=== PATIENT | female | born 1950 | race Caucasian/White ===

== ENCOUNTER → 2019-11-23 09:22 | Outpatient (BNVA) | payer MEDICARE, SELFPAY | PROVIDERS: Family Provider Family Medicine; PCP Family Medicine; Visit Provider Specialist | DX: M17.11 Unilateral primary osteoarthritis, right knee (principal) | CPT/HCPCS: 73560; 73565 ==

== ENCOUNTER 2019-12-02 08:59 | Outpatient (CLI) | payer MEDICARE, SELFPAY ==
--- NOTE | 2019-12-02 09:15 | MR_ITS ---
WS: [id number] INDICATION: Lump left lower limb TECHNIQUE: MRI of the femur without and with gadolinium enhancement. Axial T2, axial PD, coronal STIR , coronal T1, sagittal STIR, and multiplanar post gadolinium imaging with fat saturation technique. FINDINGS: Correlation to prior radiograph November 23, 2019 Proximal left femur is normal in appearance. Mild degenerative arthritis left hip with joint space na rrowing is partially visualized. Normal bone marrow signal in the femoral diaphysis. No acute fractur es. Palpable markers overlying the mid thigh. Well-circumscribed intramuscular lipoma in the proximal ant erior thigh compartment. This demonstrates loss of signal on the fat saturation images. No abnormal a reas of enhancement. Lipoma measures approximately 3.5 x 9.6 x 19.1 cm AP by transverse by mary al. This is in the area of the palpable markers. This extends from the left hip at the level of the f emoral neck to the mid thigh and involves the rectus femoris and vastus lateralis. No underlying bone marrow edema. No other suspicious lesions. MR/MR femur LT wo/w con [id number] IMPRESSION: 1. Large well-circumscribed intramuscular lipoma in the area of concern left p roximal thigh. 2. Lipoma measures 3.5 x 9.6 x 19.1 cm and extends from the left hip to the mi d thigh. 3. This involves or displaces the rectus femoris and vastus lateralis musculat ure in the anterior compartment. 4. No enhancing components or enhancing soft tissue nodularity.
[2019-12-02 10:57] LABS: Blood Urea Nitrogen 21 mg/dL (8-23); Glomerular Filtration Rate 49.5 mL/min (90-130)
== END 2019-12-02 09:00 | disposition home or self-care (01) ==
LOC: RADWPI 09:04
PROVIDERS: Family Provider Family Medicine; PCP Family Medicine; Visit Provider Specialist
DX: R22.42 Localized swelling, mass and lump, left lower limb (principal)
CPT/HCPCS: 73720; 82565; 84520; A9579

== ENCOUNTER 2020-08-17 13:34 | Outpatient (CLI) | payer MEDICARE, SELFPAY ==
--- NOTE | 2020-08-17 18:24 | ONC CON_ITS ---
Dr. Callahan New Patient Note Patient: Jennifer Gary Unit #: [id number]: 1950 Dicatated By: Roge Callahan M.D.Date of Visit: Aug 17, 2020 Onc MED New Patient/Consult Referring Physician: Dr. Puma Deluca M.D. Chief Complaint: Liposarcoma. History of Present Illness: This is a 70 year-old woman with a well-diffentiated liposarcoma involving the left thigh. She had presented with a large knot in her left thigh. She had brought to the attention of Dr. Brooks on a scheduled follow-up visit with her in October 2019. At that point she had been aware of it for about 6 months. MRI of the left femur with and without contrast on 12/02/2019 showed findings consistent with a well-circumscribed intramuscular lipoma in the proximal anterior thigh compartment. It measured 3.5 x 9.6 x 19.1 cm. It was noted to extend from the left hip at the level of the femoral neck to the mid thigh and it was involving the rectus femoris and vastus lateralis. There is no underlying bone marrow edema. She was referred to the orthopedic department at [facility] for further management. On 04/13/2020 she underwent excision of the left thigh mass by Dr. Puma Pisano for what was presumed to be an intramuscular lipoma. 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 The mitotic count was 0/10 HPF. The tumor measured 15 x 12.9 x 3.9 cm. The margins were noted to be involved by sarcoma. There were no lymph nodes included in the surgical specimen. The tumor was noted to be positive for MDM2 gene amplification by FISH with a ratio of 7.5. She is seen now at her request, mainly because she has been having more pain in her left thigh, starting just above the left knee and radiating up to the hip. She says it hurts all the time. She also complains that her energy is very low, and that seems to have worsened since her surgery. She complains of being weak and fatigued to the point that she gets lightheaded. She is still able to do light work. ECOG score is 1. Her appetite has been okay, though she says she does not eat very much. However, she has been gaining weight. She does not have fever. She sometimes has hot flashes/sweating. Her breathing is rough at times, but that she attributes to sarcoidosis. She does not complain of cough. She has had some chest pain. She complains of having nausea on a daily basis. She also has heartburn despite taking pantoprazole. Bowel function has been okay. She reports having some bladder incontinence. She has arthritis in both knees. She has chronic migraine, for which she has been on Botox. She has no numbness/paresthesia or other focal neurologic symptoms. She does report having bad anxiety attacks. She has obstructive sleep apnea, she has not been able to tolerate CPAP due to claustrophobia. Past Medical History: Her medical history includes chronic anxiety, chronic kidney disease (stage III), chronic migraine, degenerative arthritis, gastroesophageal reflux disease, history of renal cancer, hyperlipidemia, hypertension, hypothyroidism, obstructive sleep apnea, and sarcoidosis. Past Surgical History: She underwent excision of left thigh mass on 04/13/2020. Her other surgical/procedural history includes arthroscopic knee surgery bilaterally, back surgery, cardiac catheterization, carpal tunnel release bilaterally, cataract excision, cholecystectomy, hysterectomy/bilateral salpingo-oophorectomy, mediastinoscopy, multiple hernia repairs, Angel fundoplication, and left partial nephrectomy in 2004. Medications: Metoprolol Succinate ER 1 Tablet (of 100 mg) Tablet SR 24 HR Oral b.i.d., Ondansetron HCl 1 Tablet (of 4 mg) Oral, Pantoprazole Sodium 1 Tablet (of 40 mg) Tablet, enteric coated Oral daily Allergies: Barium Sulfate, Codeine Sulfate, and oxyCODONE HCl. Social History: Ms. Gary is single. She is a non-smoker. She does not drink alcohol. Family History: Father had heart disease and of lung cancer at age 71. Mother with Alzheimer's dementia at age 82. She also had heart problems. She has 2 brothers, 1 of whom is known to be in good health. She had a total of 17 stepbrothers and sisters and she indicates that all of the stepsisters had breast cancer. Review Of Symptoms: Constitutional - Her energy is lower than it was prior to her surgery. She is able to do light housework. Her appetite is OK, but she says she doesn't eat very much. However, she reports that she has been gaining weight. No fever, night sweats, or hot flashes. ECOG score is 1, Eyes - She does not have good vision, but it has not changed recently, ENMT - No hearing loss or tinnitus. She has seasonal allergies. No mouth sores. No sore throat or difficulty swallowing, Hematologic/Lymphatic - She bruises easily, Respiratory - She has shortness of breath. No cough. No pleuritic pain or hemoptysis, Cardiovascular - She has had chest pain. No palpitations, Gastrointestinal - She has daily nausea. No vomiting. She is taking pantoprazole for heartburn. No diarrhea or constipation. No blood in the stool or black stools, Genitourinary (F) - No dysuria or hematuria. No urinary frequency. She has incontinence, Musculoskeletal - She has significant pain in her left leg. It starts in her knee and radiates up into her thigh. She also has chronic right knee pain, Integumentary - No skin complications, Neurologic - She has chronic headaches. She gets Botox injections. She has occasional dizziness. No numbness or tingling. No other focal neurologic symptoms, Psychiatric - She has frequent anxiety. No depression. She does not sleep. Vital Signs: Performed on Aug 17, 2020 14:03: 4, 37.04 (HIGH), 2.22 sq.m, 68.00 in, 98 %, 75 /min, 24 /min, 140/67 mm(hg), 99.0 F (HIGH), and 243.6 lbs (HIGH). Physical Examination: Constitutional - She appears to be in reasonably good general health, Eyes - Sclerae nonicteric. Conjunctivae clear, ENMT - No lesions noted in the oral cavity, Neck - No mass or thyromegaly, Hematologic/Lymphatic - No cervical, clavicular, or axillary adenopathy, Respiratory - Lungs sound clear. She has good air movement bilaterally, Cardiovascular - Heart rhythm is regular. There is no murmur, gallop, or rub noted, Abdomen - Distended. Liver and spleen are not enlarged. There is no abdominal mass or ascites noted and there is no inguinal adenopathy, Back/Spine - No spine or CVA tenderness noted, Extremities - No edema. The left thigh incision appears well-healed. There is no mass or other palpable abnormality in that area. Posterior tibial pulses are palpable bilaterally, Integumentary - No rashes. No suspicious skin lesions noted, Neurologic - No focal neurologic deficits noted. Impression: 1. 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 2. She underwent excision of left thigh mass on 04/13/2020 with pathology showing positive surgical margin. Her other medical illnesses include: 3. Hypertension. 4. Hyperlipidemia. 5. Chronic kidney disease. 6. Hypothyroidism. 7. GERD. 8. Pulmonary sarcoidosis. 9. Obstructive sleep apnea. 10. Degenerative arthritis. 11. Chronic anxiety. 12. History of left partial nephrectomy for renal cell cancer in 2004. Plan: The surgical findings and pathology results were reviewed with the patient. We discussed the clinic complications. She has a well differentiated liposarcoma involving the intramuscular space of the left thigh. It has been completely excised, but with a positive surgical margin. I would expect that in the setting of completely resected, low-grade disease observation would be the appropriate management, but I will contact Dr. Jimenez at [facility] to make sure they would not want to see her there, as she definitely will be at risk for local recurrence and also at some risk for development of metastatic disease. As such, given her worsening left thigh pain and worsening fatigue, I also will want to schedule her for a follow-up MRI of the left thigh and for a chest CT scan. I will obtain recent lab studies done by Dr. Rosario to verify her renal function. Signed By: Roge Callahan M.D. <<Signature on File>>
== END 2020-08-17 13:35 | disposition home or self-care (01) ==
LOC: ONCMED 13:39
PROVIDERS: PCP Family Medicine; Visit Provider Internal Medicine Medical Oncology
DX: C49.22 Malignant neoplasm of connective and soft tissue of left lower limb, including hip (principal); I10 Essential (primary) hypertension; E78.5 Hyperlipidemia, unspecified; N18.9 Chronic kidney disease, unspecified; E03.9 Hypothyroidism, unspecified; K21.9 Gastro-esophageal reflux disease without esophagitis; D86.0 Sarcoidosis of lung; G47.33 Obstructive sleep apnea (adult) (pediatric); M19.90 Unspecified osteoarthritis, unspecified site; F41.9 Anxiety disorder, unspecified; Z90.5 Acquired absence of kidney
CPT/HCPCS: 99204

== ENCOUNTER 2020-09-07 09:40 | Outpatient (CLI) | payer MEDICARE, SELFPAY ==
--- NOTE | 2020-09-07 09:45 | MR_ITS ---
WS: [id number] INDICATION: Liposarcoma TECHNIQUE: MRI of the femur without and with gadolinium enhancement. Axial T2, axial PD, coronal STIR , coronal T1, sagittal STIR, and multiplanar post gadolinium imaging with fat saturation technique. FINDINGS: Comparison to prior MRI December 02, 2019 Previously described extensive left thigh intramuscular lipoma has been resected in the interval. Pre viously described lipoma displaced the rectus femoris and vastus lateralis in the anterior thigh comp artment. Residual T1 fatty lipoma in the high proximal thigh measuring 1.7 x 7.2 x 7.4 cm. No enhanci ng components or soft tissue nodularity. Normal bone marrow signal in the proximal and distal femur. No bone marrow signal abnormalities. Norm al postoperative changes in the mid and distal anterior thigh compartment. No drainable fluid collect ions or abscess. No inguinal lymphadenopathy. No other significant findings. MR/MR femur LT wo/w con [id number] IMPRESSION: 1. Interval postoperative changes resection of the majority of the previously described left intramuscular lipoma/liposarcoma. 2. Residual lipoma in the high proximal thigh measuring 1.7 x 7.2 x 7.4 CM. 3. No abnormal gadolinium enhancement or enhancing nodularity. 4. Normal bone marrow signal in the femoral shaft and proximal femur. 5. No inguinal lymphadenopathy.
== END 2020-09-07 09:41 | disposition home or self-care (01) ==
LOC: RADSHAW 09:43
PROVIDERS: PCP Family Medicine; Visit Provider Internal Medicine Medical Oncology
DX: C49.9 Malignant neoplasm of connective and soft tissue, unspecified (principal); D17.24 Benign lipomatous neoplasm of skin and subcutaneous tissue of left leg; C49.22 Malignant neoplasm of connective and soft tissue of left lower limb, including hip; Z03.89 Encounter for observation for other suspected diseases and conditions ruled out
CPT/HCPCS: 73720; 93971; A9579

== ENCOUNTER 2020-09-07 09:51 | Outpatient (CLI) | payer MEDICARE, SELFPAY ==
--- NOTE | 2020-09-07 11:46 | USCV_ITS ---
JarethJennifer hernández Age: 70 Gender: F : 1950 Exam Date: 09/07/2020 11:58 Ordering Phys: Roge Callahan MD Technologist: Portillo Shore [place] [facility] [place]: rule out DVT PROCEDURES: Venous duplex imaging was performed in only the left lower extremity. The following venous structures were evaluated: common femoral vein, profunda vein, proximal portion of the greater saphenous vein, superficial femoral vein, and the popliteal vein. In addition, the posterior tibial and peroneal trunk were evaluated. Serial compression, augmentation maneuvers, and spectral Doppler flow evaluation were performed. FINDINGS: Normal 2-D Doppler and augmentation and compressibility throughout the lower extremity venous structures. Additional imaging through the proximal calf veins also reveals no thrombus. Limited evaluation of the greater saphenous vein is patent with no thrombus.. CONCLUSIONS No evidence of left lower extremity DVT. Boy Arroela MD (Electronically Signed) Final Date: 07 September 2020 16:42 S
== END 2020-09-07 09:52 | disposition home or self-care (01) ==
LOC: RAD 09:52
PROVIDERS: PCP Family Medicine; Visit Provider Internal Medicine Medical Oncology
DX: C49.22 Malignant neoplasm of connective and soft tissue of left lower limb, including hip (principal)
CPT/HCPCS: 93971

== ENCOUNTER 2020-09-12 08:15 | Outpatient (CLI) | payer MEDICARE, SELFPAY ==
--- NOTE | 2020-09-12 08:26 | CT_ITS ---
WS: [id number] Exam: CT chest w con* [id number] Date/Time of Exam: 09/12/2020 8:27 AM Reason For Exam: LIPOSARCOMA DLP: 922.[address] scans at [facility] use at least one of these dose optimization techniques: automat ed exposure control; mA and/or kV adjustment per patient size (includes targeted exams where dose is matched to clinical indication); or iterative reconstruction. 100 mL of nonionic radiographic contras t administered for this exam. The lungs are fully expanded and clear. Mild plaque atelectasis in the left upper lobe. No suspicious pulmonary mass or nodule. Prominent hiatal hernia. No significant mediastinal or hilar lymphadenopat hy. The thoracic aorta is normal in caliber. The central pulmonary arteries are clear. There are nume nelly calcified mediastinal and perihilar granulomas. No pericardial or pleural effusion. Mild cardiac enlargement. Normal thyroid tissue. No axillary lymphadenopathy. The chest wall is intact. There are no destructive bone lesions. CT sections the upper abdomen demonstrate numerous calcified granulomas in the spleen. CT/CT chest w con* [id number] IMPRESSION: 1. No sign of suspicious pulmonary mass or lymphadenopathy in the chest. 2. Prominent hiatal hernia.
[2020-09-12 08:48] LABS: Blood Urea Nitrogen 17 mg/dL (8-23); Glomerular Filtration Rate 49.4 mL/min (90-130)
[2020-09-12] MEDS: iodixanol 320 mg/mL 100mL Btl IV (08:55)
== END 2020-09-12 08:16 | disposition home or self-care (01) ==
LOC: RADWPI 08:19
PROVIDERS: Nurse Practitioner; PCP Family Medicine; Visit Provider Internal Medicine Medical Oncology
DX: C49.22 Malignant neoplasm of connective and soft tissue of left lower limb, including hip (principal); K44.9 Diaphragmatic hernia without obstruction or gangrene
CPT/HCPCS: 71260; 82565; 84520; Q9967

== ENCOUNTER 2020-10-03 11:42 | Outpatient (CLI) | payer MEDICARE, SELFPAY ==
--- NOTE | 2020-10-03 11:46 | MM_ITS ---
WS: [id number] BILATERAL SCREENING DIGITAL MAMMOGRAM WITH CAD HISTORY: SCREENING COMPARISON: 09/04/2019, 07/18/2018 Bilateral CC and MLO views submitted. Computer aided detection analyzed. Breast composition: There are scattered areas of fibroglandular density. No suspicious masses, microc alcifications or architectural distortion. Asymmetries and benign calcifications are stable. MM/[place] [id number] IMPRESSION: BI-RADS: 2-Benign FOLLOW UP: 1 Year Follow-up
== END 2020-10-03 11:43 | disposition home or self-care (01) ==
LOC: RADSHAW 11:45
PROVIDERS: PCP Family Medicine; Visit Provider Family Medicine
DX: Z12.31 Encounter for screening mammogram for malignant neoplasm of breast (principal)
CPT/HCPCS: 77067

== ENCOUNTER 2021-01-13 08:33 | Outpatient (CLI) | payer MEDICARE, SELFPAY ==
--- NOTE | 2021-01-13 08:40 | USCV_ITS ---
Jennifer Gary Age: 70 Gender: F : 1950 Exam Date: 01/13/2021 08:50 Ordering Phys: Tayo Novoa MD Technologist: Rosario Collins [place]am [place] [facility] [place] [facility] [place] Indication: LLE CALF REDNESS, WARMTH, AND SWELLING HISTORY: Lower extremity swelling. Lower extremity pain. PROCEDURES: Venous duplex imaging was performed in only the left lower extremity. The following venous structures were evaluated: common femoral vein, profunda vein, proximal portion of the greater saphenous vein, superficial femoral vein, and the popliteal vein. In addition, the posterior tibial and peroneal trunk were evaluated. Serial compression, augmentation maneuvers, and spectral Doppler flow evaluation were performed. FINDINGS: No evidence of DVT seen in any vessel visualized at this time. CONCLUSIONS No evidence of left lower extremity DVT. Boy Arreola MD (Electronically Signed) Final Date: 13 January 2021 16:59 S
== END 2021-01-13 08:34 | disposition home or self-care (01) ==
LOC: RAD 08:38
PROVIDERS: PCP Family Medicine; Visit Provider Orthopaedic Surgery Adult Reconstructive Orthopaedic Surgery
DX: R22.42 Localized swelling, mass and lump, left lower limb (principal)
CPT/HCPCS: 93971

== ENCOUNTER 2021-04-06 07:50 | Outpatient (CLI) | payer MEDICARE, SELFPAY ==
--- NOTE | 2021-04-06 08:00 | US_ITS ---
WS: [id number] Limited abdomen ultrasound. HISTORY: LEFT renal cancer. Partial nephrectomy. COMPARISON: CT 12/17/2018 RIGHT kidney is normal size measuring 10.7 x 3.6 x 4.3 cm. No hydronephrosis or mass. No calcificatio ns. LEFT kidney measures 10.7 cm in length. Moderate thinning of the upper pole cortex. No soft tissue ma ss or obstruction. Minimally distended urinary bladder. US/US abdomen limited [id number] IMPRESSION: 1. Mild atrophy and cortical thinning of the LEFT kidney. No recurrent mass or obstruction. 2. Normal RIGHT kidney.
== END 2021-04-06 07:51 | disposition home or self-care (01) ==
LOC: RAD 07:55
PROVIDERS: PCP Family Medicine; Visit Provider Registered Nurse
DX: R10.9 Unspecified abdominal pain (principal); C64.2 Malignant neoplasm of left kidney, except renal pelvis; N26.1 Atrophy of kidney (terminal)
CPT/HCPCS: 76705

== ENCOUNTER 2021-04-21 13:02 | Outpatient (CLI) | payer MEDICARE, SELFPAY ==
--- NOTE | 2021-04-21 13:26 | CT_ITS ---
WS: [id number] CT ABDOMEN PELVIS TECHNIQUE: Contrast-enhanced CT of the abdomen and pelvis with coronal and sagittal reformatted image s. CLINICAL INFORMATION: LEFT FLANK PAIN, HX OF RENAL CARCINOMA, SARCOIDOSIS OF LUNG COMPARISON: Ultrasound April 06, [address] DLP: All CT scans at [facility] use at least one of these dose optimization techniques: automat ed exposure control; mA and/or kV adjustment per patient size (includes targeted exams where dose is matched to clinical indication); or iterative reconstruction. FINDINGS: Prior hysterectomy. Lung bases are well aerated. Mild diffuse fatty infiltration liver. Cholecystecto my clips. Normal portal vein and splenic vein. Mild fatty atrophy of the pancreas. Calcified splenic granulomas. Small moderate esophageal hiatal hernia. Calcified subcarinal lymph nodes. Adrenal glands are normal. Right renal cortical atrophy. No hydronephrosis in either kidney. Small low-attenuation lesion mid left kidney measuring 6 mm too small to definitively characterize but likely renal cyst. N o obstructing renal or ureteral calculi. Normal caliber abdominal aorta. Mild aortic calcification. No evidence of high-grade small or large b owel obstruction. Ventral abdominal wall diastases. Shallow ventral abdominal wall hernia unchanged f rom previous. No evidence of strangulation or obstruction. Tiny fat-containing umbilical hernia. No free fluid in the pelvis. Pelvic phleboliths. Slight anterol isthesis L4 on L5. No other significant findings. CT/CT abdomen pelvis w con* [id number] IMPRESSION: 1. No obstructing renal or ureteral calculi. No hydronephrosis in either kidne y. 2. Small low-attenuation lesion left kidney measuring 6 mm too small to defini tively characterize but likely renal cyst. 3. Mild diffuse fatty infiltration of the liver. Prior cholecystectomy. 4. Small to moderate esophageal hiatal hernia. 5. Stable ventral abdominal wall hernia/rectus diastases. No strangulation or obstructed bowel. 6. Normal caliber abdominal aorta. 7. No adenopathy in the abdomen or pelvis. 8. No other significant findings.
[2021-04-21 14:35] LABS: Blood Urea Nitrogen 16 mg/dL (8-23)
[2021-04-21 14:36] LABS: Glomerular Filtration Rate 62.3 mL/min (90-130)
[2021-04-21] MEDS: iohexol 300 mg/mL 100 mL Btl IV (14:42)
== END 2021-04-21 13:03 | disposition home or self-care (01) ==
LOC: RADWPI 13:05
PROVIDERS: PCP Family Medicine; Visit Provider Family Medicine
DX: R10.9 Unspecified abdominal pain (principal); Z85.528 Personal history of other malignant neoplasm of kidney; C49.22 Malignant neoplasm of connective and soft tissue of left lower limb, including hip; D86.0 Sarcoidosis of lung; N18.30 Chronic kidney disease, stage 3 unspecified; K43.9 Ventral hernia without obstruction or gangrene; K44.9 Diaphragmatic hernia without obstruction or gangrene; K76.0 Fatty (change of) liver, not elsewhere classified; N28.9 Disorder of kidney and ureter, unspecified
CPT/HCPCS: 74177; 82565; 84520; Q9967

== ENCOUNTER → 2021-07-25 12:10 | Outpatient (BNVA) | payer MEDICARE, SELFPAY | PROVIDERS: PCP Family Medicine; Referring Provider Registered Nurse; Visit Provider Specialist | DX: M79.642 Pain in left hand (principal); R20.0 Anesthesia of skin; R20.2 Paresthesia of skin; M79.643 Pain in unspecified hand; M79.641 Pain in right hand | CPT/HCPCS: 73130; 80053; 85651; 86140; 86200; 86431 ==

== ENCOUNTER 2021-07-25 12:54 | Outpatient (CLI) | payer MEDICARE, SELFPAY ==
[2021-07-25 14:28] LABS: Alanine Aminotransferase 15 U/L (0-33); Albumin Level 3.8 g/dL (3.5-5.2); Alkaline Phosphatase 69 IU/L (35-105); Anion Gap 15.2 (5-19); Aspartate Amino Transferase 15 U/L (0-32); Blood Urea Nitrogen 21 mg/dL (8-23); Calcium 9.1 mg/dL (8.5-10.5); Carbon Dioxide 21 mmol/L (22-29); Chloride 105 mmol/L (98-107); Globulin 2.7 g/dL (1.3-4.6); Glomerular Filtration Rate 62.1 mL/min (90-130); Glucose 98 mg/dL (65-115); Osmolality Calculated 287 mOsm/kg (285-295); Potassium 4.2 mmol/L (3.5-5.1); Sodium 137 mmol/L (136-145); Total Bilirubin 0.4 mg/dL (0.15-1.2); Total Protein 6.5 g/dL (6.6-8.7)
[2021-07-26 13:56] LABS: Erythrocyte Sedimentation Rate 6 mm/hr (0-15)
[2021-07-26 14:07] LABS: Cyclic Citrullinated Peptide <16 UNITS
== END 2021-07-25 12:55 | disposition home or self-care (01) ==
PROVIDERS: PCP Family Medicine; Visit Provider Specialist
DX: M79.641 Pain in right hand (principal); R20.0 Anesthesia of skin; R20.2 Paresthesia of skin; M79.642 Pain in left hand
CPT/HCPCS: 80053; 85651; 86140; 86200; 86431

== ENCOUNTER → 2021-08-15 15:26 | Outpatient (BNVA) | payer MEDICARE, SELFPAY | PROVIDERS: PCP Family Medicine; Referring Provider Specialist; Visit Provider Specialist | DX: R20.0 Anesthesia of skin (principal); R20.2 Paresthesia of skin | CPT/HCPCS: 95910 ==

== ENCOUNTER 2022-04-12 06:00 | Outpatient (RCR) | payer MEDICARE, SELFPAY | END 2022-04-26 23:59 | disposition home or self-care (01) | LOC: MPT 06:00 | PROVIDERS: PCP Family Medicine; Referring Provider Orthopaedic Surgery Adult Reconstructive Orthopaedic Surgery; Visit Provider Orthopaedic Surgery Adult Reconstructive Orthopaedic Surgery | DX: M25.552 Pain in left hip (principal) | CPT/HCPCS: 97110; 97162 ==

== ENCOUNTER 2022-04-27 06:00 | Outpatient (RCR) | payer MEDICARE, SELFPAY | END 2022-05-27 23:59 | disposition home or self-care (01) | LOC: MPT 06:00 | PROVIDERS: PCP Family Medicine; Referring Provider Orthopaedic Surgery Adult Reconstructive Orthopaedic Surgery; Visit Provider Orthopaedic Surgery Adult Reconstructive Orthopaedic Surgery | DX: M25.552 Pain in left hip (principal) | CPT/HCPCS: 97110; 97140 ==

== ENCOUNTER → 2022-05-14 13:33 | Outpatient (BNVA) | payer MEDICARE, MEDICAID, SELFPAY | PROVIDERS: PCP Family Medicine; Referring Provider Family Medicine; Visit Provider Internal Medicine | DX: E04.2 Nontoxic multinodular goiter (principal); R93.89 Abnormal findings on diagnostic imaging of other specified body structures; R13.10 Dysphagia, unspecified | CPT/HCPCS: 36415; 84439; 84443; 99204 ==

== ENCOUNTER 2022-05-23 14:11 | Outpatient (CLI) | payer MEDICARE, MEDICAID, SELFPAY ==
--- NOTE | 2022-05-23 14:38 | MM_ITS ---
WS: [id number] Exam: [place] [id number] Date/Time of Exam: 05/23/2022 3:00 PM Reason For Exam: SCREENING VIEWS: MLO and CC views both breasts. 3D digital tomosynthesis is also included in this exam. Comparison made with prior exam of 01/31/2015, 04/20/2016, 05/02/2017, 07/18/2018, 09/04/2019, 10/03/2020.. Findings: There was no sign of mass, architectural distortion or suspicious calcification in either breast. Sta ble appearing nodular densities in both breasts.Scattered fibroglandular densities MM/[place] [id number] Impression: BI-RADS: 2-Benign FOLLOW-UP: 1 Year Follow-up This mammogram was also analyzed by the Computer Aided Detection System R2 Imag e Rejoiner.
== END 2022-05-23 14:12 | disposition home or self-care (01) ==
PROVIDERS: PCP Family Medicine; Visit Provider Family Medicine
DX: Z12.31 Encounter for screening mammogram for malignant neoplasm of breast (principal)
CPT/HCPCS: 77063; 77067

== ENCOUNTER 2022-06-14 07:55 | Outpatient (CLI) | payer MEDICARE, MEDICAID, SELFPAY ==
--- NOTE | 2022-06-14 08:45 | US_ITS ---
WS: [id number] ULTRASOUND THYROID FNA CLINICAL INFORMATION: Nodules TECHNIQUE: Ultrasound-guided FNA FINDINGS: Outside imaging was reviewed. 2 largest nodules were selected considered nodules 1 and 2 i n the RIGHT upper thyroid for the purposes of this examination. The procedure including risks, benefits, and complications were discussed with the patient who agreed to proceed. Timeout was performed. Using sterile technique patient was prepped and draped in usual s terile fashion. After 1% lidocaine, using ultrasound guidance, a 25-gauge needle was advanced into th e RIGHT superior thyroid nodule. 3 passes were made with active aspiration. Pathology was present for slide preparation. Next, the additional underlying RIGHT superior thyroid nodule was sampled with 3 passes and active aspiration. No immediate complications. Patient remained in the ultrasound suite 20 minutes postprocedure with intermittent ultrasound to ens ure no hematoma. No hematoma 20 minutes postprocedure. US/US biopsy/FNA thyroid [id number] IMPRESSION: Uncomplicated ultrasound-guided thyroid FNA of the 2 largest thyroid nodules. T hese are labeled nodules #1 and #2 RIGHT upper thyroid.
[2022-06-14 10:36] LABS: Testosterone Total 2.5 ng/dL (2.9-40.8)
[2022-06-14 11:22] LABS: Follicle Stimulating Hormone 59.4 mIU/mL
== END 2022-06-14 07:56 | disposition home or self-care (01) ==
PROVIDERS: PCP Family Medicine; Visit Provider Internal Medicine
DX: R93.89 Abnormal findings on diagnostic imaging of other specified body structures (principal); E04.2 Nontoxic multinodular goiter; R61 Generalized hyperhidrosis; R53.83 Other fatigue
CPT/HCPCS: 10005; 10006; 36415; 82670; 83001; 84144; 84403; 88108

== ENCOUNTER 2022-07-12 14:07 | Outpatient (CLI) | payer MEDICARE, SELFPAY ==
[2022-07-12 15:53] LABS: Testosterone Total < 2.5 ng/dL (2.9-40.8)
== END 2022-07-12 14:08 | disposition home or self-care (01) ==
PROVIDERS: PCP Family Medicine; Visit Provider Internal Medicine
DX: R79.89 Other specified abnormal findings of blood chemistry (principal)
CPT/HCPCS: 84403

== ENCOUNTER → 2022-07-17 12:46 | Outpatient (BNVA) | payer MEDICARE, MEDICAID, SELFPAY | PROVIDERS: PCP Family Medicine; Visit Provider Internal Medicine | DX: R93.89 Abnormal findings on diagnostic imaging of other specified body structures (principal); E04.2 Nontoxic multinodular goiter; R13.10 Dysphagia, unspecified | CPT/HCPCS: 99214 ==

== ENCOUNTER → 2022-08-08 12:37 | Outpatient (BNVA) | payer MEDICARE, MEDICAID, SELFPAY | PROVIDERS: PCP Family Medicine; Visit Provider Surgery | DX: R19.4 Change in bowel habit (principal) | CPT/HCPCS: 99203 ==

== ENCOUNTER 2022-08-10 10:20 | Day surgery (SDC) | payer MEDICARE, MEDICAID, SELFPAY ==
[2022-08-09 13:12] VITALS: BMI 34.9
[2022-08-10 10:49] VITALS: BP 171/96; PULSE 74; RESP 18; TEMP 36.2; O2SAT 99
[2022-08-10] MEDS: sodium chloride 0.9% 1,000 ML 30 ML IV (11:00)
--- NOTE | 2022-08-10 11:09 | ANES.PREANE2 ---
Pre-Anesthetic Assessment Height/Weight: Height 1.73 m Weight 104.326 kg Temp Pulse Resp BP Pulse Ox O2 Del Method 97.2 F L 74 18 171/96 99 08/10/22 10:49 08/10/22 10:49 08/10/22 10:49 08/10/22 10:49 08/10/22 10:49 08/10/22 10:49 Operation Date: 08/10/22 11:45 Proposed Procedures p EGD [id number],R19.4(Not Applicable) - Juanpablo Souza MD Familial anesthetic complications: None Was Beta Donald taken within 24 hours: N/A Was Clonidine taken within 24 hours: N/A Last intake: Intake Last Liquid Date 08/09/22 Last Liquid Time 18:00 Last Solid Date 08/09/22 Last Solid Time 17:30 Social No alcohol and No tobacco Exam alert, oriented x 3, clear to auscultation bilaterally and regular rate & rhythm Airway Mallampati: Class III Dentition: partials (broken partial) Pulmonary allergies GI Gastroesophageal Reflux Disease Metabolic Morbid Obesity Anesthetic Plan ASA status: 2 Anesthesia: MAC Risk of > 500 ml blood loss (7ml/kg in children): No Medications/Allergies Home Medications Medication Instructions Recorded Confirmed Last Taken Type albuterol sulfate 90 mcg/actuation 1 inh inhalation QID PRN Shortness 07/25/21 08/10/22 08/09/22 History breath activated powder inhaler Of Breath diphenhydramine HCl 25 mg capsule 25 mg PO Q6H PRN Allergy Symptoms 07/25/21 08/10/22 08/09/22 History (Benadryl) montelukast 10 mg tablet 10 mg PO DAILY 05/14/22 08/10/22 08/09/22 History tizanidine 4 mg capsule 4 mg PO TID PRN Spasms 05/14/22 08/10/22 08/09/22 History ergocalciferol (vitamin D2) 50 mcg 50 mcg PO .WKLY 08/08/22 08/10/22 08/09/22 History (2,000 unit) capsule ondansetron HCl 4 mg tablet 4 mg PO Q6H PRN Nausea And Vomiting 08/08/22 08/10/22 08/09/22 History pantoprazole 40 mg tablet,delayed 40 mg PO DAILY 08/08/22 08/10/2222 History release Allergies Allergy/AdvReac Type Severity Reaction Status Date / Time hydroxyzine Allergy Mild RASH Verified 08/08/22 13:12 barium sulfate Allergy unknown Verified 08/08/22 13:12 codeine Allergy unknown Verified 08/08/22 13:12 oxycodone Allergy unknown Verified 08/08/22 13:12 Current Medications Generic Name Dose Route Start Last Admin Trade Name Freq PRN Reason Stop Dose Admin Sodium Chloride 1,000 mls @ 30 mls/hr 08/10/22 10:45 08/10/22 11:00 Sodium Chloride 0.9% IV 08/11/22 10:44 30 mls/hr .Q24H GABRIELLA Administration PFSH Anesthesia Medical History Osteoarthritis of knees, bilateral Surgical History History of arthroscopy of both knees Family History Grandmother Diabetes Congestive heart failure Father Cancer Heart disease Congestive heart failure Sister Cancer Mother Heart disease Dementia Grandfather Congestive heart failure Social History Smoking and tobacco status: never smoked Alcohol intake: never Female Reproductive History Spontaneous abortions: No Data Anesthesia Cardiac Studies: No Data to Display
--- NOTE | 2022-08-10 12:29 | W.PM.OPSUD ---
Surgery/Procedure H&P Update DATE OF PROCEDURE: August 10, 2022 DATE H&P PERFORMED: 08/08/22 H&P UPDATE INFORMATION: I have reviewed H&P completed within last 30 days, I have examined patient prior to procedure and No changes to prior documentation PRIMARY INDICATION FOR PROCEDURE: The same PLANNED PROCEDURE: Operation Date: 08/10/22 11:45 Proposed Procedures p EGD [id number],R19.4(Not Applicable) - Juanpablo Souza MD
[2022-08-10 14:06] VITALS: BP 159/89; PULSE 65; RESP 18; TEMP 36.5; O2SAT 95
--- NOTE | 2022-08-10 14:09 | ANE.PACU2 ---
Inpatient post-anesthesia follow up: Airway intact: Yes Vital signs: Temperature 97.2 F Pulse Rate 74 Respiratory Rate 18 Blood Pressure 171/96 Pulse Oximetry 99 Oxygen Delivery Me thod Room Air Oxygen Flow Rate Fraction of Inspir ed Oxygen Hydration adequate: Yes Nausea and vomiting: No Pain level: 1 Mental status: Baseline
[2022-08-10 14:11] VITALS: BP 170/86; PULSE 66; RESP 18; O2SAT 98
[2022-08-10 14:20] VITALS: BP 154/80; PULSE 61; RESP 18; O2SAT 99
== END 2022-08-10 14:32 | disposition home or self-care (01) ==
PROVIDERS: PCP Family Medicine; Visit Provider Surgery
PROC: 0DJ08ZZ Inspection of Upper Intestinal Tract, Via Natural or Artificial Opening Endoscopic (ICD-10-PCS; CPT 43235; principal; 2022-08-10 11:45)
DX: R19.4 Change in bowel habit (principal); K44.9 Diaphragmatic hernia without obstruction or gangrene; K29.70 Gastritis, unspecified, without bleeding; K29.80 Duodenitis without bleeding; K21.9 Gastro-esophageal reflux disease without esophagitis; E66.01 Morbid (severe) obesity due to excess calories; Z68.35 Body mass index [BMI] 35.0-35.9, adult
CPT/HCPCS: 43239; 88305; J2704; J7030

== ENCOUNTER 2022-08-27 09:48 | Outpatient (CLI) | payer MEDICARE, MEDICAID, SELFPAY ==
--- NOTE | 2022-08-27 10:05 | FL_ITS ---
WS: [id number] BARIUM ENEMA SINGLE CONTRAST. HISTORY: ALTERED BOWEL HABITS COMPARISON: None available. FLUOROSCOPY TIME: 2min [id number] # of spot films: 29 Normal bowel gas pattern on the supervisor print line radiograph. Splenic granulomata. Prior cholecystectomy. Barium is instilled via gravity through a rectal tube. Tortuous overlapping loops of sigmoid colon. No persi stent filling defects. No strictures or mass identified throughout the colon. The appendix has been r emoved. There are a few scattered diverticula in the distal colon. Overlapping loops of colon in the hepatic and splenic flexures.
--- NOTE | 2022-08-27 10:15 | FL_ITS ---
WS: [id number] BARIUM ENEMA SINGLE CONTRAST. HISTORY: ALTERED BOWEL HABITS COMPARISON: None available. FLUOROSCOPY TIME: 2min [id number] # of spot films: 29 Normal bowel gas pattern on the talent scout radiograph. Splenic granulomata. Prior cholecystectomy. Barium is instilled via gravity through a rectal tube. Tortuous overlapping loops of sigmoid colon. No persi stent filling defects. No strictures or mass identified throughout the colon. The appendix has been r emoved. There are a few scattered diverticula in the distal colon. Overlapping loops of colon in the hepatic and splenic flexures. FL/FL barium enema [id number] IMPRESSION: 1. Tortuous overlapping loops of colon. 2. No strictures or mass is identified. 3. A few scattered diverticula in the distal colon. 4. Prior appendectomy.
== END 2022-08-27 09:49 | disposition home or self-care (01) ==
LOC: RAD 09:49
PROVIDERS: PCP Family Medicine; Visit Provider Surgery
DX: R19.4 Change in bowel habit (principal); K57.30 Diverticulosis of large intestine without perforation or abscess without bleeding
CPT/HCPCS: 74270; 74280

== ENCOUNTER → 2022-08-29 09:57 | Outpatient (BNVA) | payer MEDICARE, MEDICAID, SELFPAY | PROVIDERS: PCP Family Medicine; Visit Provider Surgery | DX: K29.70 Gastritis, unspecified, without bleeding (principal); R19.4 Change in bowel habit; M62.08 Separation of muscle (nontraumatic), other site | CPT/HCPCS: 99213 ==

== ENCOUNTER 2022-09-26 13:55 | Outpatient (CLI) | payer MEDICARE, MEDICAID, SELFPAY ==
--- NOTE | 2022-09-26 14:01 | XR_ITS ---
WS: [id number] SCREENING DEXA SCAN Zixi CLINICAL INFORMATION: AGE RELATED OSTEOPOROSIS W/O CURRENT FX COMPARISON: None. FINDINGS: The L1-L4 bone mineral density measures 1.09. This corresponds to a T score score of -0.9 and Z score of -0.4. Left femoral neck bone mineral density measures 0.900 g/cm2. This corresponds to a T score of -0.9 an d Z score of -0.2. Right femoral neck bone mineral density measures 0.814 g/cm2. This corresponds to a T score -1.5of an d Z score of -0.9. Mean femoral neck bone mineral density measures 0.857 g/cm2. This corresponds to a T score of -1.2 an d Z score of -0.6. XR/XR DEXA axial skeleton* [id number] IMPRESSION: Normal bone mineralization lumbar spine at the upper end of the range approachi ng osteopenia. Osteopenia femoral necks.. Patient's FRAX calculated 10 year probability for major osteoporotic fracture i s 11.0 % and osteoporotic hip fracture is 2.1%.
== END 2022-09-26 13:56 | disposition home or self-care (01) ==
LOC: RAD 13:56
PROVIDERS: PCP Family Medicine; Visit Provider Family Medicine
DX: M81.0 Age-related osteoporosis without current pathological fracture (principal); M85.88 Other specified disorders of bone density and structure, other site
CPT/HCPCS: 77080

== ENCOUNTER 2022-10-18 06:38 | Outpatient (CLI) | payer MEDICARE, MEDICAID, SELFPAY ==
[2022-10-18 06:57] VITALS: BMI 36.0
--- NOTE | 2022-10-18 07:03 | ECG_ITS ---
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 Interpretive Statements NAME OF STUDY: LEXISCAN SESTAMIBI STRESS TEST INDICATION: Syncope, exertional SOB PROCEDURE: At the baseline, the blood pressure was 149/86 mm Hg with a heart rate of 66 bpm. The electrocardiogram showed sinus rhythm, normal axis.Normal ST and T's. ??? The Lexiscan was infused over a period of 20 seconds. A total of 0.4 milligrams of Lexiscan was infused. The stress phase was continued for a total of 5 minutes. Heart rate at the end of the stress phase was 85 bpm with a blood pressure of 139/81 mm Hg. The EKG at the peak infusion revealed sinus rhythm with no significant ST-T wave changes. ??? Sestamibi was injected 20 seconds after the Lexiscan infusion. ??? Blood pressure at the end of the recovery phase was 127/79 mm Hg with a heart rate of 82 beats per minute. ??? CONCLUSION: 1. No significant EKG changes with the LexiScan infusion. 2. No LexiScan induced chest pain or cardiac arrhythmia. 3. Normal blood pressure and heart rate response. 4. Sestamibi/sestamibi perfusion scan pending; see separate report. Electronically Signed On 10-22-2022 6:19:49 GIS PROGRAMMER by Donna Anderson M.D. [email or web address]
--- NOTE | 2022-10-18 07:03 | NMCV_ITS ---
NM jabari perf SPECT r/s* [id number] Jennifer Gary Age: 72 Gender: F : 1950 Exam Date: 10/18/2022 07:53 Ordering Phys: Christina Rosario DO Technologist: CONNIE Bradshaw Exam Location: [facility] Indications: SYNCOPE AND COLLAPSE STRESS TEST Please see separate stress test report in [facility] for full findings IMAGE PROTOCOL Rest/Stress 1 Lexiscan Day Radiopharmaceutical Dose (mCi) Administration Site Administered by Rest: Tc-99m 11.0 IV CONNIE Worrell Sestamibi Stress:Tc-99m 32.8 IV CONNIE Worrell Sestamibi Rest: 18-Oct-2022 60 Discovery 630 Stress: 18-Oct-2022 30 Discovery 630 0.4mg Lexiscan. Images obtained in supine and prone position. SPECT RESULTS Technical Quality: Excellent Raw Data Analysis: Normal Image Corrections: No attenuation or motion correction applied Summed Stress Score: 1 Summed Rest Score: 1 Summed Difference Score: 1 PERFUSION FINDINGS Very small sized perfusion abnormality of mild severity of apical inferior and apical lateral uribe on rest images with improved tracer uptake in stress images. This is suggestive of attenuation artifact. FUNCTIONAL RESULTS (calculated via Gated SPECT) Stress Image LV EF (%): 78 Stress EDV (mL):81 TID: 0.73 Stress ESV (mL):18 FUNCTIONAL FINDINGS: The left ventricle is normal in size. Transient Ischemia Dilatation of 0.73. The left ventricular ejection fraction is normal with a value of 78%. There is hyperdynamic left ventricular wall thickening. Normal end diastolic and end systolic volumes. IMPRESSIONS 1. Myocardial perfusion imaging is normal. Attenuation artifact in apical wall. 2. Overall left ventricular systolic function is normal without regional wall motion abnormalities, LVEF=78%. 3. EKG portion of the study will be reported separately. 4. Scan indicates low risk for cardiac events. Donna Anderson MD (Electronically Signed) Final Date: 19 October 2022 15:50 S
[2022-10-18] MEDS: regadenoson 0.4 Mg/5 ml Syringe IVP (08:42)
[2022-10-18 09:02] VITALS: BP 127/79; PULSE 82
== END 2022-10-18 06:39 | disposition home or self-care (01) ==
LOC: CDL 06:39
PROVIDERS: PCP Family Medicine; Visit Provider Family Medicine
DX: R55 Syncope and collapse (principal); R06.02 Shortness of breath
CPT/HCPCS: 36415; 78452; 93017; 96374; A9500; J2785

== ENCOUNTER 2022-10-21 17:04 | Emergency (ER) | payer MEDICARE, MEDICAID, SELFPAY ==
--- NOTE | 2022-10-21 17:06 | W.ED.FALL ---
HPI - Fall General: Chief Complaint: Extremity Injury, Lower Stated Complaint: RIGHT KNEE AND HIP PAIN S/P FALL Time Seen by Provider: 10/21/22 17:06 History of Present Illness: Ms. Gary is a 72-year-old lady presenting to the emergency department due to right lower extremity injury. She reports being in her baseline health and slipped on ice earlier while outside. She had her leg fall under her and immediately felt pain and a crack. She denies numbness or tingling. Denies prior injury. Does have knee pain, no loss of consciousness or head strike no other pain identified. No other specific changes in health, exacerbating, or alleviating factors identified. Onset (ago): hour(s) Fall from: standing Loss of consciousness: None Prolonged down time: no Symptoms prior to fall: none Context: tripped/slipped Severity: moderate Quality: aching Review of Systems General: Reports: 10 or more systems reviewed and unremarkable except in HPI and below PFSH ED PFSH: Medical History (Updated 10/29/22 @ 00:00 by CHARLEE Amos) Lateral malleolar fracture Osteoarthritis of knees, bilateral Surgical History History of arthroscopy of both knees Family History Grandmother Diabetes Congestive heart failure Father Cancer Heart disease Congestive heart failure Sister Cancer Mother Heart disease Dementia Grandfather Congestive heart failure Social History Smoking and tobacco status: never smoked Alcohol intake: never Female Reproductive History: Spontaneous abortions: No Physical Exam Const: COMMON NORMALS: alert GENERAL APPEARANCE: cooperative and well developed HENMT: COMMON NORMALS: normocephalic and atraumatic HEAD & SCALP: normocephalic and atraumatic THROAT: posterior oropharynx normal OTHER: No schwartz signs or raccoon eyes. No hemotympanum. No otorrhea or rhinorrhea. Jaw alignment normal. Dentition baseline. No obvious bony step-offs. No septal hematoma. No evidence of ocular entrapment. Eye: COMMON NORMALS: conjunctivae normal CONJUNCTIVA: Yes conjunctivae normal SCLERA: sclerae normal Neck/C-Spine: COMMON NORMALS: supple GENERAL: Yes trachea midline Resp: COMMON NORMALS: normal respiratory effort and clear to auscultation bilaterally EFFORT & INSPECTION: Yes able to speak in complete sentences AUSCULTATION: clear to auscultation bilaterally Cardio: COMMON NORMALS: regular rate and regular rhythm RATE: regular rate RHYTHM: regular rhythm GI: COMMON NORMALS: Soft to palpation PALPATION: Yes Soft to palpation and No Tenderness to palpation present (GI) Back/Pelvis: COMMON NORMALS: no thoracic nor lumbar tenderness Extremity: NARRATIVE EXTREMITY EXAM: Right ankle ecchymosis and tenderness palpation. Distal CMS intact. GENERAL: Yes normal exam except as noted and No edema Neuro: COMMON NORMALS: moves all extremities SENSORIUM/ORIENTATION: Yes alert and No Orientation impaired Psych: COMMON NORMALS: mental status grossly normal and Normal thought process present THOUGHT PROCESS: Normal thought process present Course Vital Signs: Vital signs: Vital Signs Temperature 98.1 F 10/21/22 17:33 Pulse Rate 75 10/21/22 19:49 Respiratory Rate 16 10/21/22 19:49 Blood Pressure 149/85 10/21/22 19:49 Pulse Oximetry 98 10/21/22 19:49 Oxygen Delivery Me thod 10/21/22 19:03 MDM - Fall Medical Decision Making 72-year-old lady presented due to fall with isolated leg injury in the context of slipping on ice. The details end performed. X-rays performed based on physical exam and incidental findings were discussed, only acute finding is small avulsion fracture. Patient placed in walking boot. Symptoms improved with treatment. The results of ED evaluation were discussed with the patient including prescriptions and/or symptomatic cares (if applicable) including appropriate and responsible use, followup plan, and return precautions. The patient verbalized understanding and felt safe for discharge. Medical Records I reviewed the patient's medical records. Lab Data I reviewed the patient's lab results. Radiology Impressions Ankle X-Ray 10/21/22 17:29 IMPRESSION: There is a 1.6 mm osseous sliver in the soft tissues distal to the lateral malleolus consistent with an avulsion fracture. Adjacent soft tissue edema and/or hematoma is present. Knee X-Ray 10/21/22 17:29 IMPRESSION: 1. There are tricompartmental osteoarthritic changes as described above. 2. There is evidence for chronic injury of the medial collateral ligament. Pelvis X-Ray 10/21/22 17:29 IMPRESSION: No evidence for acute fracture. Tibia/Fibula X-Ray 10/21/22 17:29 IMPRESSION: A tiny osseous sliver in the soft tissues distal to the lateral malleolus/distal fibula is consistent with an avulsion fracture. There is adjacent soft tissue hematoma and edema. Discharge Plan Discharge Patient Disposition: Home Clinical Impression: Ankle fracture, lateral malleolus, closed Condition: Stable Prescriptions: No Action albuterol sulfate 90 mcg/actuation aerosol powdr breath activated 1 inh inhalation QID PRN (Reason: Shortness Of Breath) diphenhydramine HCl [Benadryl] 25 mg capsule 25 mg PO Q6H PRN (Reason: Allergy Symptoms) (DME) Walker See Rx Instructions .Route .MEDSUPPLY Qty: 1 0RF Rx Instructions: As directed by HOME tizanidine 4 mg capsule 4 mg PO TID PRN (Reason: Spasms) montelukast 10 mg tablet 10 mg PO DAILY ondansetron HCl 4 mg tablet 4 mg PO Q6H PRN (Reason: Nausea And Vomiting) pantoprazole 40 mg tablet,delayed release (DR/EC) 40 mg PO DAILY ergocalciferol (vitamin D2) 50 mcg (2,000 unit) capsule 50 mcg PO .WKLY Discharge Orders: Discharge ED (Routine); Ordered 10/21/22 Ordered By: William Rayo Other Ambulatory Orders: DME: Miscellaneous (Order) Location: None Selected Ordered By: William Rayo Referrals: Christina Rosario DO [Primary Care Provider] - Discharge Diet: Usual diet Discharge Activity: Limit activity as instructed Patient Instructions: Ankle Fracture (ED), Pain Management Activity Restrictions/Additional Instructions: Thank you for visiting the emergency department. You were seen and evaluated for fall with ankle injury. You are found to have an avulsion fracture of the lateral malleolus. I will arrange for follow-up with either orthopedics or podiatry. Please wear your walking boot and limit weightbearing until follow-up and further instructions. You may use mnld-gnv-gdqdzmo medications such as acetaminophen and ibuprofen for pain however please do not exceed the daily recommended dosage as listed on the packaging and please keep in mind that many namebrand medications contain the same active ingredients. Please avoid these medications if previously instructed to do so by another physician due to other underlying medical condition. Return to the emergency department for uncontrolled symptoms, any new changes in ability to move your foot or toes, loss of sensation, or anything else that you are concerned about a feel needs emergency department evaluation. Coding Level of Care Code ED Digital Media Sales Consultant for Brennen Medina
[2022-10-21 17:24] VITALS: BP 182/112; PULSE 81; RESP 18; O2SAT 97; BMI 36.0
--- NOTE | 2022-10-21 17:29 | XRR_ITS ---
PROCEDURE INFORMATION: Exam: XR Right Ankle Exam date and time: 10/21/2022 5:47 PM Age: 72 years old Clinical indication: Pain; Ankle; Right; Additional info: Fall, pain TECHNIQUE: Imaging protocol: Radiologic exam of the Right ankle. Views: 3 or more views. COMPARISON: CR XR knees AP WB w RT lmt ORTH 11/23/2019 9:26 AM FINDINGS: Bones/joints: Enthesophytes are present off the os calcis at the Achilles insertion and plantar fascia origin. There is a 1.6 mm osseous sliver in the soft tissues distal to the lateral malleolus consistent with an avulsion fracture. Adjacent soft tissue edema and/or hematoma is present. Soft tissues: There is edema in the soft tissues. XR/XR ankle RT min 3V* [id number] IMPRESSION: There is a 1.6 mm osseous sliver in the soft tissues distal to the lateral malleolus consistent with an avulsion fracture. Adjacent soft tissue edema and/or hematoma is present.
--- NOTE | 2022-10-21 17:29 | XRR_ITS ---
PROCEDURE INFORMATION: Exam: XR Pelvis Exam date and time: 10/21/2022 5:43 PM Age: 72 years old Clinical indication: Pelvic pain; Additional info: Fall, rle injury TECHNIQUE: Imaging protocol: Radiologic exam of the pelvis. Views: 1 or 2 view. COMPARISON: CT abdomen pelvis w con* [id number] 04/21/2021 2:39 PM FINDINGS: Bones/joints: Hglg-mm-kcgomdun narrowing of the hip joint spaces. Soft tissues: Unremarkable. Other findings: Surgical coils overlie the pelvis. XR/XR pelvis 1-2V* [id number] IMPRESSION: No evidence for acute fracture.
--- NOTE | 2022-10-21 17:29 | XRR_ITS ---
PROCEDURE INFORMATION: Exam: XR Right Tibia and Fibula Exam date and time: 10/21/2022 5:47 PM Age: 72 years old Clinical indication: Pain; Lower leg; Right; Additional info: Fall pain, deformity TECHNIQUE: Imaging protocol: Radiologic exam of the Right tibia and fibula. Views: 2 views. COMPARISON: CR XR knees AP WB w RT lmt ORTH 11/23/2019 9:26 AM FINDINGS: Bones/joints: A tiny osseous sliver in the soft tissues distal to the lateral malleolus/distal fibula is consistent with an avulsion fracture. There is adjacent soft tissue hematoma and edema. Enthesophytes are present off the os calcis at the Achilles insertion and plantar fascia origin. Soft tissues: See Bones/joints finding. XR/XR tibia fibula RT 2V [id number] IMPRESSION: A tiny osseous sliver in the soft tissues distal to the lateral malleolus/distal fibula is consistent with an avulsion fracture. There is adjacent soft tissue hematoma and edema.
--- NOTE | 2022-10-21 17:29 | XRR_ITS ---
PROCEDURE INFORMATION: Exam: XR Right Knee Exam date and time: 10/21/2022 5:49 PM Age: 72 years old Clinical indication: Pain; Knee; Right; Additional info: Fall, pain TECHNIQUE: Imaging protocol: Radiologic exam of the Right knee. Views: 1 or 2 views. COMPARISON: CR XR knees AP WB w RT lmt ORTH 11/23/2019 9:26 AM FINDINGS: Bones/joints: Tricompartmental primary osteoarthritic changes including joint space narrowing, subchondral cystic/sclerotic changes, and marginal osteophyte formations. These changes appear most prominent across the lateral joint compartment. Osseous density in the soft tissues adjacent to the distal femoral medial epicondyle is consistent with chronic medial collateral ligament injury. Soft tissues: See above. XR/XR knee RT 1-2V [id number] IMPRESSION: 1. There are tricompartmental osteoarthritic changes as described above. 2. There is evidence for chronic injury of the medial collateral ligament.
[2022-10-21 17:33] VITALS: TEMP 36.7
[2022-10-21 17:42] VITALS: BP 201/101
[2022-10-21] MEDS: fentaNYL 50 mcg/mL INJ 2mL IVP (17:54)
[2022-10-21] MEDS: labetalol 5 mg/mL SDV 20mL 10 MG IVP (18:50)
[2022-10-21 19:03] VITALS: BP 155/94; PULSE 71; RESP 19; O2SAT 97
[2022-10-21] MEDS: ketorolac 30 mg/mL INJ 15 MG IVP (19:39)
[2022-10-21] MEDS: acetaminophen 500 mg Tablet 1000 MG PO (19:39)
[2022-10-21 19:49] VITALS: BP 149/85; PULSE 75; RESP 16; O2SAT 98
--- NOTE | 2022-10-23 08:40 | DCPLANNER ---
Addendum entered by Hollie Conner 11/02/22 11:34: Patient had a follow up appointment scheduled with ortho - patient did attend appointment Addendum entered by Hollie Conner 10/23/22 15:15: Patient has a follow up appointment scheduled for Saturday, October 24, 2022 at 1:[address] Parker at ortho. Clinic will call patient with appointment information. Original Note: assistant program manager had message to schedule a follow up appointment for patient with podiatry. assistant program manager sent patients information to the front office staff at podiatry. Patients information will be printed and reviewed. Clinic will call patient with appointment information.
== END 2022-10-21 19:51 | disposition home or self-care (01) ==
PROVIDERS: Emergency Provider Emergency Medicine; PCP Family Medicine
DX: M25.561 Pain in right knee (principal); S82.61XA Displaced fracture of lateral malleolus of right fibula, initial encounter for closed fracture; W00.0XXA Fall on same level due to ice and snow, initial encounter
CPT/HCPCS: 72170; 73560; 73590; 73610; 96374; 96375; 99284; J1885; J3010; J3490

== ENCOUNTER → 2022-10-24 12:49 | Outpatient (BNVA) | payer MEDICARE, MEDICAID, SELFPAY | PROVIDERS: PCP Family Medicine; Visit Provider Podiatrist Foot & Ankle Surgery | DX: S82.831A Other fracture of upper and lower end of right fibula, initial encounter for closed fracture (principal); W00.9XXA Unspecified fall due to ice and snow, initial encounter; S82.63XA Displaced fracture of lateral malleolus of unspecified fibula, initial encounter for closed fracture | CPT/HCPCS: 73610; 99204 ==

== ENCOUNTER → 2022-11-07 15:11 | Outpatient (BNVA) | payer MEDICARE, MEDICAID, SELFPAY | PROVIDERS: PCP Family Medicine; Visit Provider Podiatrist Foot & Ankle Surgery | DX: S82.831D Other fracture of upper and lower end of right fibula, subsequent encounter for closed fracture with routine healing (principal); W00.0XXD Fall on same level due to ice and snow, subsequent encounter | CPT/HCPCS: 73610; 99214 ==

== ENCOUNTER → 2022-11-28 14:43 | Outpatient (BNVA) | payer MEDICARE, MEDICAID, SELFPAY | PROVIDERS: PCP Family Medicine; Visit Provider Podiatrist Foot & Ankle Surgery | DX: S82.831A Other fracture of upper and lower end of right fibula, initial encounter for closed fracture (principal); W00.9XXA Unspecified fall due to ice and snow, initial encounter | CPT/HCPCS: 73610 ==

== ENCOUNTER 2022-11-28 15:18 | Outpatient (CLI) | payer MEDICARE, MEDICAID, SELFPAY | END 2022-11-28 15:19 | disposition home or self-care (01) | LOC: SPT 15:18 | PROVIDERS: PCP Family Medicine; Visit Provider Podiatrist Foot & Ankle Surgery | DX: Z46.89 Encounter for fitting and adjustment of other specified devices (principal); S82.831D Other fracture of upper and lower end of right fibula, subsequent encounter for closed fracture with routine healing; X58.XXXD Exposure to other specified factors, subsequent encounter | CPT/HCPCS: 97760; 99214; L1902 ==

== ENCOUNTER → 2022-12-12 13:38 | Outpatient (BNVA) | payer MEDICARE, MEDICAID, SELFPAY | PROVIDERS: PCP Family Medicine; Visit Provider Podiatrist Foot & Ankle Surgery | DX: S82.831D Other fracture of upper and lower end of right fibula, subsequent encounter for closed fracture with routine healing; W00.9XXD Unspecified fall due to ice and snow, subsequent encounter | CPT/HCPCS: 73610; 99214 ==

== ENCOUNTER 2023-01-09 12:24 | Outpatient (CLI) | payer MEDICARE, MEDICAID, SELFPAY ==
[2023-01-09 13:25] LABS: Urine Creatinine 85 mg/dL (28-217)
[2023-01-09 13:35] LABS: Total Volume Urine 900 ml
[2023-01-15 17:54] LABS: Calculated Total (E+NE) 33 mcg/24 h (26-121)
[2023-01-18 11:51] LABS: Free Cortisol Urine 5.4 mcg/24 h (4.0-50.0); Total Urine 900 mL; Urine Creatinine 0.74 g/24 h (0.50-2.15)
== END 2023-01-09 12:25 | disposition home or self-care (01) ==
LOC: LAB 12:27
PROVIDERS: PCP Family Medicine; Visit Provider Internal Medicine
DX: E04.2 Nontoxic multinodular goiter (principal); R93.89 Abnormal findings on diagnostic imaging of other specified body structures; S82.831A Other fracture of upper and lower end of right fibula, initial encounter for closed fracture; W00.9XXA Unspecified fall due to ice and snow, initial encounter
CPT/HCPCS: 73610; 82384; 82530; 82570

== ENCOUNTER 2023-01-09 15:16 | Outpatient (CLI) | payer MEDICARE, MEDICAID, SELFPAY | END 2023-01-09 15:17 | disposition home or self-care (01) | LOC: SPT 15:17 | PROVIDERS: PCP Family Medicine; Visit Provider Podiatrist Foot & Ankle Surgery | DX: Z46.89 Encounter for fitting and adjustment of other specified devices (principal); S82.831D Other fracture of upper and lower end of right fibula, subsequent encounter for closed fracture with routine healing; X58.XXXD Exposure to other specified factors, subsequent encounter | CPT/HCPCS: 97760; 99214; L1902 ==

== ENCOUNTER → 2023-01-15 10:39 | Outpatient (BNVA) | payer MEDICARE, MEDICAID, SELFPAY | PROVIDERS: PCP Family Medicine; Visit Provider Internal Medicine | DX: E04.2 Nontoxic multinodular goiter (principal); R93.89 Abnormal findings on diagnostic imaging of other specified body structures; M85.80 Other specified disorders of bone density and structure, unspecified site | CPT/HCPCS: 99214 ==

== ENCOUNTER 2023-01-17 13:37 | Outpatient (CLI) | payer MEDICARE, MEDICAID, SELFPAY ==
--- NOTE | 2023-01-17 13:47 | CT_ITS ---
WS: [id number] CT HEAD TECHNIQUE: Noncontrast CT of the head obtained from the skullbase to the vertex. CLINICAL INFORMATION: ACUTE OIST TRAUMATIC HEADACHE,NOT INTRACTABLE COMPARISON: MRI [address] 2009 DLP: 984.[address] scans at [facility] use at least one of these dose optimization techniques: automated e xposure control; mA and/or kV adjustment per patient size (includes targeted exams where dose is matc hed to clinical indication); or iterative reconstruction. FINDINGS: No evidence of intracranial hemorrhage or mass effect. Ventricular system and basal cisterns are isaacs nt. Mild small vessel changes with moderate parenchymal volume loss. No extra-axial fluid collections . No evidence of mass or mass effect. Small incidental RIGHT calcified 9 mm parafalcine meningioma un changed since the MRI. Paranasal sinuses and mastoid air cells are well aerated. .Normal visualized soft tissues. Vascular c alcification. CT/CT head wo con* [id number] IMPRESSION: 1. No evidence of intracranial hemorrhage or mass effect. 2. Mild small vessel changes with moderate parenchymal volume loss. 3. Small incidental RIGHT calcified 9 mm parafalcine meningioma unchanged sinc e the MRI. 4. No acute intracranial findings.
== END 2023-01-17 13:38 | disposition home or self-care (01) ==
LOC: RAD 13:39
PROVIDERS: PCP Family Medicine; Visit Provider Nurse Practitioner Family
DX: G44.319 Acute post-traumatic headache, not intractable (principal); D32.0 Benign neoplasm of cerebral meninges
CPT/HCPCS: 70450

== ENCOUNTER → 2023-02-06 14:02 | Outpatient (BNVA) | payer MEDICARE, MEDICAID, SELFPAY | PROVIDERS: PCP Family Medicine; Visit Provider Podiatrist Foot & Ankle Surgery | DX: S82.831A Other fracture of upper and lower end of right fibula, initial encounter for closed fracture (principal); W00.9XXA Unspecified fall due to ice and snow, initial encounter | CPT/HCPCS: 73610; 99213 ==

== ENCOUNTER → 2023-04-19 11:38 | Outpatient (BNVA) | payer MEDICARE, MEDICAID, SELFPAY | PROVIDERS: PCP Family Medicine; Visit Provider Podiatrist Foot & Ankle Surgery | DX: S82.831A Other fracture of upper and lower end of right fibula, initial encounter for closed fracture (principal); W18.30XA Fall on same level, unspecified, initial encounter | CPT/HCPCS: 73610; 99213 ==

== ENCOUNTER 2023-05-30 09:18 | Outpatient (CLI) | payer MEDICARE, MEDICAID, SELFPAY ==
--- NOTE | 2023-05-30 09:24 | MM_ITS ---
WS: [id number] Bilateral screening 3D tomosynthesis digital mammogram, 05/30/2023 Clinical Data: SCREENING Comparison: 05/23/2022, 10/03/2020, 09/04/2019, 07/18/2018, 05/02/2017, 04/20/2016, 01/31/2015, 01/29/2014, 04/24. Findings: The breast parenchymal pattern shows heterogeneous density. No spiculated masses or clustered calcifi cations are seen. There are no secondary signs of carcinoma. Mole markers are on both breasts. MM/[place] [id number] Impression: 1. Negative bilateral mammogram unchanged. 2. Recommend annual screening mammograms. BIRADS: 1-Negative FOLLOW UP: 1 Year Follow-up The CAD swatch checker was used.
== END 2023-05-30 09:19 | disposition home or self-care (01) ==
PROVIDERS: PCP Family Medicine; Visit Provider Family Medicine
DX: Z12.31 Encounter for screening mammogram for malignant neoplasm of breast (principal); S82.831D Other fracture of upper and lower end of right fibula, subsequent encounter for closed fracture with routine healing; X58.XXXD Exposure to other specified factors, subsequent encounter; M25.371 Other instability, right ankle
CPT/HCPCS: 77063; 77067; 99213

== ENCOUNTER → 2023-06-13 14:05 | Outpatient (BNVA) | payer MEDICARE, MEDICAID, SELFPAY | PROVIDERS: PCP Family Medicine; Visit Provider Emergency Medicine | DX: M25.512 Pain in left shoulder (principal); G89.29 Other chronic pain | CPT/HCPCS: 73030 ==

== ENCOUNTER 2023-06-18 10:20 | Outpatient (CLI) | payer MEDICARE, MEDICAID, SELFPAY ==
--- NOTE | 2023-06-18 10:28 | XR_ITS ---
WS: [id number] EXAMINATION: XR chest 2V* [id number] REASON FOR EXAM: MASS OF LUNG COMPARISON: 05/17/2017 ORDER DATE: 06/18/2023 10:32 AM FINDINGS: The lungs are clear of infiltrate. No cardiomegaly. There are changes of bilateral hilar adenopathy with right paratracheal adenopathy. There are no significant pleural effusions . No significant abno rmalities are noted in the spine or remainder of the bony thorax. There is extensive granulomatous no dular changes in the spleen IMPRESSION: NO SIGNIFICANT CHANGE IN THE ADENOPATHY NOTED COMPARED TO THE PREVIOUS STUDY..
== END 2023-06-18 10:21 | disposition home or self-care (01) ==
PROVIDERS: PCP Family Medicine; Visit Provider Nurse Practitioner Family
DX: R91.8 Other nonspecific abnormal finding of lung field (principal)
CPT/HCPCS: 71046

== ENCOUNTER 2023-06-26 07:50 | Outpatient (CLI) | payer MEDICARE, MEDICAID, SELFPAY ==
--- NOTE | 2023-06-26 08:00 | US_ITS ---
WS: [id number] THYROID ULTRASOUND HISTORY: multiple thyroid nodules COMPARISON: 03/13/2022 Right lobe: 2.0 cm x 1.9 cm x 5.0 cm (w x ap x l). Volume: 10.1 cm3. Slightly enlarged gland. There is a cystic nodule with intramural nodule in the mid gland. The entire cyst and intramural nodule measures 1.5 x 1.0 x 1.5 cm. The intramural nodule measures 0.7 x 0.5 x 0 .7 cm. This intramural nodule was previously biopsied. There are a few additional scattered spongifor m nodules throughout the gland. Multiple nodules are identified. Left lobe: 2.1 cm x 1.7 cm x 4.4 cm (w x ap x l). Volume: 8.1 cm3. Numerous subcentimeter thyroid nodules are identified. Some of these are colloid cysts and others are spongiform nodules. No dominant or solid mass. Isthmus: 0.3 cm. IMPRESSION: 1. Cystic nodule with intramural nodule in the mid RIGHT gland is not significantly changed since 7 . This nodule has undergone a prior biopsy. 2. Additional bilateral benign appearing subcentimeter thyroid nodules. Some of these are cysts and s ome are spongiform nodules.
== END 2023-06-26 07:51 | disposition home or self-care (01) ==
PROVIDERS: PCP Family Medicine; Visit Provider Internal Medicine
DX: E04.2 Nontoxic multinodular goiter (principal); R13.10 Dysphagia, unspecified; R93.89 Abnormal findings on diagnostic imaging of other specified body structures
CPT/HCPCS: 76536; 99214

== ENCOUNTER 2023-07-10 07:02 | Outpatient (CLI) | payer MEDICARE, MEDICAID, SELFPAY ==
--- NOTE | 2023-07-10 07:15 | MR_ITS ---
WS: [id number] MRI LEFT SHOULDER NONCONTRAST TECHNIQUE: Sagittal T2, coronal T1, T2 and proton density imaging. Axial gradient PDE imaging. CLINICAL INFORMATION: M25.512 - Pain in left shoulder COMPARISON: None. FINDINGS: Moderate degenerative arthritis AC joint with mild downsloping acromion. Slight subacromial spurring. Edema at the AC joint with synovial thickening. Tendinopathy supraspinatus and infraspinatus. Tiny u ndersurface tear at the distal infraspinatus insertion. Normal teres minor. Normal subscapularis. Normal biceps tendon in the bicipital groove. Degenerative fraying of the glenoid labrum. Distal subscapularis appears intact. Degenerative cystic changes the g reater tuberosity. Intra-articular biceps tendon appears intact. IMPRESSION: 1. Moderate degenerative arthritis AC joint with mild edema. Slight subacromial spurring. 2. Tendinopathy involving the supraspinatus and infraspinatus. Tiny undersurface tear at the distal infraspinatus insertion. 3. Rotator cuff is otherwise intact. 4. Normal biceps tendon in the bicipital groove. 5. Moderate to advanced degenerative narrowing at the glenohumeral articulation with degenerative fr aying of the labrum.
== END 2023-07-10 07:03 | disposition home or self-care (01) ==
LOC: RAD 07:02
PROVIDERS: PCP Family Medicine; Visit Provider Emergency Medicine
DX: M19.012 Primary osteoarthritis, left shoulder (principal); M67.813 Other specified disorders of tendon, right shoulder; M25.512 Pain in left shoulder; G89.29 Other chronic pain; R53.1 Weakness
CPT/HCPCS: 73221

== ENCOUNTER → 2023-07-18 10:46 | Outpatient (BNVA) | payer MEDICARE, MEDICAID, SELFPAY | PROVIDERS: PCP Family Medicine; Visit Provider Internal Medicine | DX: R93.89 Abnormal findings on diagnostic imaging of other specified body structures (principal); E04.2 Nontoxic multinodular goiter; R13.10 Dysphagia, unspecified | CPT/HCPCS: 36415; 84439; 84443; 99214 ==

== ENCOUNTER 2023-07-23 11:17 | Outpatient (CLI) | payer MEDICARE, MEDICAID, SELFPAY ==
--- NOTE | 2023-07-23 11:24 | CT_ITS ---
WS: [email or web address] CT chest w con* [id number] HISTORY: HILAR ADEOPATHY/HX OF SARCOIDOSIS TECHNIQUE: Axial imaging performed through the thorax. Coronal and sagittal reformats are submitted. All CT scans at [facility] use at least one of these dose optimization techniques: automated exposure control; mA and/or kV adjustment per patient size (includes targeted exams where dose is mat ched to clinical indication); or iterative reconstruction. CONTRAST: Omnipaque 350; 100 mL IV. DLP: 1708.44 mGy.cm COMPARISON: 09/12/2020 Lungs and central airway: Well-aerated lungs. No bronchovascular nodularity or interstitial thickenin g. No cystic changes. Pleura: Normal. No pleural effusion. Heart and pericardium: Mild enlargement of the heart. Mediastinum and prakash: Mild widening of the mediastinum There is extensive mediastinal and hilar adenopathy. Large calcifications contained in majority of th e lymph nodes. Lymph node distribution and extent of calcifications is very similar to prior examinat ions. This is consistent with a history of sarcoidosis. Vessels: Normal size aortic and pulmonary artery. No coronary artery calcifications. Chest wall and lower neck: Bilateral thyroid nodules. Largest on the RIGHT is 12 mm. Upper abdomen: Small hiatal hernia. Numerous splenic granulomatous. Prior cholecystectomy. No adrenal mass. Small stable retrocrural lymph nodes. Osseous structures: Increase in thoracic kyphosis. IMPRESSION: 1. Stable large calcified mediastinal and hilar lymph nodes. Consistent with history of sarcoidosis a nd prior granulomatous disease. 2. No lung abnormalities. 3. Mild cardiomegaly. 4. Splenic granulomatous. 5. Prior cholecystectomy.
[2023-07-23 12:48] LABS: Blood Urea Nitrogen 28 mg/dL (8-23)
[2023-07-23] MEDS: iohexol 350 mg/mL 500 mL Btl (per mL) IV (12:52)
== END 2023-07-23 11:18 | disposition home or self-care (01) ==
PROVIDERS: Radiology Diagnostic Radiology; PCP Family Medicine; Visit Provider Nurse Practitioner Family
DX: R59.0 Localized enlarged lymph nodes (principal); Z87.09 Personal history of other diseases of the respiratory system; I51.7 Cardiomegaly
CPT/HCPCS: 71260; 82565; 84520; Q9967

== ENCOUNTER → 2023-08-05 07:48 | Outpatient (BNVA) | payer MEDICARE, MEDICAID, SELFPAY | PROVIDERS: PCP Family Medicine; Visit Provider Specialist | DX: M25.512 Pain in left shoulder (principal); G89.29 Other chronic pain; M75.102 Unspecified rotator cuff tear or rupture of left shoulder, not specified as traumatic; M12.812 Other specific arthropathies, not elsewhere classified, left shoulder; M67.912 Unspecified disorder of synovium and tendon, left shoulder | CPT/HCPCS: 20610; 73030; 99213 ==

== ENCOUNTER 2024-04-24 07:22 | Outpatient (CLI) | payer MEDICARE, MEDICAID, SELFPAY ==
--- NOTE | 2024-04-24 07:42 | XR_ITS ---
WS: [id number] Exam: XR shoulder RT min 2V* [id number] Date/Time of Exam: 04/24/2024 7:44 AM Reason For Exam: MASS OF SKIN OF R SHOULDER No acute fracture. Moderate DJD and spurring at the AC joint. Soft tissue swelling over the AC joint. XR/XR shoulder RT min 2V* [id number] IMPRESSION: 1. No fracture. 2. DJD at the AC joint and soft tissue swelling.
== END 2024-04-24 07:23 | disposition home or self-care (01) ==
PROVIDERS: PCP Family Medicine; Visit Provider Family Medicine
DX: R22.31 Localized swelling, mass and lump, right upper limb (principal); M19.011 Primary osteoarthritis, right shoulder
CPT/HCPCS: 73030

== ENCOUNTER 2024-06-01 13:53 | Outpatient (CLI) | payer MEDICARE, MEDICAID, SELFPAY ==
--- NOTE | 2024-06-01 14:03 | MM_ITS ---
WS: [id number] BILATERAL 3D TOMOSYNTHESIS DIGITAL SCREENING MAMMOGRAPHY WITH CAD CLINICAL INFORMATION: SCREENING HISTORY: Screening mammogram. No current complaints. COMPARISON: 2022 TECHNIQUE: Bilateral CC and MLO views. FINDINGS: The breasts are composed of heterogeneous fibroglandular density tissue, which can limit the detectio n of small underlying mass lesions. No suspicious mass, asymmetry, calcifications, or architectural d istortion. No evidence of malignancy. Incidental punctate and lucent centered calcifications. Biopsy clip LEFT breast. MM/[place] [id number] IMPRESSION: BI-RADS: 2-Benign FOLLOW UP: 1 Year Follow-up Recommend return to annual screening mammography.
--- NOTE | 2024-06-01 14:45 | US_ITS ---
WS: [id number] THYROID ULTRASOUND HISTORY: R93.89 - Abnormal findings on diagnostic imaging of other... COMPARISON: 06/26/2023 Right lobe: 1.8 cm x 2.0 cm x 4.5 cm (w x ap x l). Volume: 7.5 cm3. Normal sized gland. There are multiple nodules throughout the gland. Majority of these are cystic nod ules. Component of colloid and spongiform nodules. The largest cystic nodule contains an intramural n odule. This nodule measures 1.1 x 1.3 x 1.3 cm in the mid gland. This nodule was described on prior s tudies and by history is undergone a prior biopsy. No increase in size. Left lobe: 1.3 cm x 1.9 cm x 4.7 cm (w x ap x l). Volume: 5.6 cm3. Normal sized gland. Several scattered cystic nodules. These are probably colloid nodules. No solid ma ss. The largest nodule in the lower pole is 1.3 x 1.4 x 1.0 cm. Isthmus: 0.3 cm. US/US thyroid [id number] IMPRESSION: 1. Stable bilateral thyroid nodules. Majority of these nodules are cystic or s pongiform. 2. Largest cystic nodule in the RIGHT gland contains an intramural nodule. By history this has undergone a prior biopsy. No increase in size.
== END 2024-06-01 13:54 | disposition home or self-care (01) ==
LOC: RAD 13:54
PROVIDERS: PCP Family Medicine; Visit Provider Internal Medicine
DX: Z12.31 Encounter for screening mammogram for malignant neoplasm of breast (principal); E04.1 Nontoxic single thyroid nodule; R92.333 Mammographic heterogeneous density, bilateral breasts; R92.1 Mammographic calcification found on diagnostic imaging of breast
CPT/HCPCS: 76536; 77063; 77067

== ENCOUNTER → 2024-06-18 10:25 | Outpatient (BNVA) | payer MEDICARE, MEDICAID, SELFPAY | PROVIDERS: PCP Family Medicine; Visit Provider Podiatrist Foot & Ankle Surgery | DX: L60.8 Other nail disorders (principal); M20.42 Other hammer toe(s) (acquired), left foot; M19.072 Primary osteoarthritis, left ankle and foot; M21.622 Bunionette of left foot | CPT/HCPCS: 99213 ==

== ENCOUNTER → 2024-08-26 11:07 | Outpatient (BNVA) | payer MEDICARE, MEDICAID, SELFPAY | PROVIDERS: PCP Family Medicine; Visit Provider Podiatrist Foot & Ankle Surgery | DX: L60.8 Other nail disorders (principal); M20.42 Other hammer toe(s) (acquired), left foot; M19.072 Primary osteoarthritis, left ankle and foot; M21.622 Bunionette of left foot | CPT/HCPCS: 99213 ==

== ENCOUNTER → 2024-10-01 14:52 | Outpatient (BNVA) | payer MEDICARE, MEDICAID, SELFPAY | PROVIDERS: PCP Family Medicine; Visit Provider Podiatrist Foot & Ankle Surgery | DX: L60.8 Other nail disorders (principal) | CPT/HCPCS: 11750; A6219 ==

== ENCOUNTER → 2024-12-07 10:55 | Outpatient (BNVA) | payer MEDICARE, MEDICAID, SELFPAY | PROVIDERS: PCP Family Medicine; Visit Provider Podiatrist Foot & Ankle Surgery | DX: Z01.818 Encounter for other preprocedural examination (principal); M79.672 Pain in left foot; M24.575 Contracture, left foot; M20.42 Other hammer toe(s) (acquired), left foot | CPT/HCPCS: 99214 ==

== ENCOUNTER 2024-12-29 09:45 | Emergency (ER) | payer MEDICARE, MEDICAID, SELFPAY ==
--- NOTE | 2024-12-29 09:46 | ECG_ITS ---
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 Measurements Intervals [place] Rate: 75 P: 38 SD: 183 QRS: 5 QRSD: 97 T: 56 QT: 406 QTc: 455 Interpretive Statements SINUS RHYTHM No previous ECG available for comparison Electronically Signed On 01-02-2025 18:12:21 BRIM SHAPER by Brad Perez M.D. [id number]
[2024-12-29 09:47] VITALS: BP 100/62; PULSE 78; RESP 22; TEMP 36.3; O2SAT 97
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
[2024-12-29 10:14] VITALS: PULSE 77; RESP 24; O2SAT 100
[2024-12-29] MEDS: ipratropium-albuterol 3 mL Neb INHALATION (10:14)
[2024-12-29 10:19] VITALS: BP 109/59; PULSE 76; O2SAT 100
[2024-12-29 10:20] LABS: Basophils # 0.1 10^3/uL (0.0-0.1); Basophils % 1.3 %; Eosinophils # 0.2 10^3/uL (0.0-0.8); Eosinophils % 1.9 %; Hematocrit 43.1 % (36-47); Lymphocytes # 1.2 10^3/uL (0.8-4.8); Lymphocytes % 13.8 %; Mean Corpuscular HGB Conc 32.9 g/dL (30-55); Mean Corpuscular Hemoglobin 28.2 pg (27-33); Mean Corpuscular Volume 85.5 fl (85-98); Mean Platelet Volume 11.8 fL (7.4-10.4); Monocytes # 0.7 10^3/uL (0.2-0.9); Monocytes % 8.2 %; Neutrophils # 6.53 10^3/uL (1.8-7.7); Neutrophils % 74.5 %; Nucleated Red Blood Cells % 0 %; Platelet Count 260 10^3/cmm (157-399); Red Blood Count 5.04 10^6/uL (3.85-5.65); Red Cell Distribution Width 14.2 % (12.1-15.1); White Blood Count 8.77 10^3/uL (3.29-11.43)
[2024-12-29] MEDS: dexamethasone 10 mg/mL INJ IVP (10:21)
[2024-12-29 10:22] LABS: ABG PH Result 7.55 (7.35-7.45); Alveolar-Arterial Oxygen Gradi 3.6 mmHg (5-10); Arterial Blood Gas Hematocrit 42.9 % (37-47); Base Excess ABG -4.9 mmol/L (-2.0-2.0); Blood Gas Allen Test Pos; Blood Gas Sample Type Arterial; Carboxyhemoglobin 0.8 %THgb (0.4-20.1); HCO3 ABG 14.4 mmol/L (22-26); HGB O2 Sat 97.1 % (95-100); Ionized Calcium Level - ABG 1.2 mmol/L (1.1-1.4); Oxygen Saturation ABG 98.9; PO2 ABG 96.2 mmHg (80.0-100.0); Potassium Level - ABG 3.6 mmol/L (3.5-5.0)
[2024-12-29 10:23] LABS: ABG PCO2 16.4 mmHg (35-45); Blood Gas Operator Identificat MONRO; Blood Gas Sample Site Radial, right; Oxygen Device ROOM AIR; PO2 FiO2 Ratio Arterial Blood 458
[2024-12-29 10:26] VITALS: PULSE 74
[2024-12-29] MEDS: LORazepam 2 mg/mL INJ 1 mL 1 MG IVP (10:36)
[2024-12-29 10:42] LABS: Alanine Aminotransferase 12 U/L (0-33); Albumin Level 4.1 g/dL (3.5-5.2); Alkaline Phosphatase 57 U/L (35-105); Anion Gap 18.7 (5-19); Aspartate Amino Transferase 33 U/L (0-32); Blood Urea Nitrogen 13 mg/dL (8-23); Carbon Dioxide 18 mmol/L (22-29); Chloride 105 mmol/L (98-107); Creatinine Clr Calc Pharmacy 44.3356; Globulin 2.6 g/dL (1.3-4.6); Glucose 96 mg/dL (65-115); Lactic Sepsis W/Reflex 2.4 mmol/L (0.5-2.2); Lipase 31 U/L (13-60); Osmolality Calculated 286 mOsm/kg (285-295); Potassium 3.7 mmol/L (3.5-5.1); Sodium 138 mmol/L (136-145); Total Bilirubin 1.2 mg/dL (0.15-1.2); Total Protein 6.7 g/dL (6.6-8.7)
[2024-12-29 11:47] LABS: Add Urine Microscopic? NO
[2024-12-29 11:55] LABS: Bilirubin Urine Negative (Negative); Blood Urine Negative (Negative); Glucose Urine UA Negative (Normal); Ketones Urine 1+ (Negative); Leukocyte Esterase Urine Negative (Negative); Nitrate Urine Negative (Negative); Protein Urine Negative (Negative); Urine Appearance Clear (CLEAR); Urine Color Yellow (Yellow); Urobilinogen Urine 0.2 mg/dL (Negative); pH Urine 6.5 (5-7)
[2024-12-29 11:59] LABS: Charge for UA Resulting for Rev
[2024-12-29 12:03] LABS: Reflex Lactate Order REFLEX LACTIC ORDERD
[2024-12-29 13:03] VITALS: BP 114/65; PULSE 82; O2SAT 99
== END 2024-12-29 13:06 | disposition home or self-care (01) ==
PROVIDERS: Emergency Provider Family Medicine; PCP Family Medicine
DX: R06.4 Hyperventilation (principal)
CPT/HCPCS: 36415; 36600; 80051; 80053; 81003; 82330; 82805; 83605; 83690; 85025; 93005; 94640; 96374; 96375; 99284; J1100; J2060

== ENCOUNTER → 2025-01-12 08:59 | Outpatient (BNVA) | payer MEDICARE, MEDICAID, SELFPAY | PROVIDERS: PCP Family Medicine; Visit Provider Internal Medicine Cardiovascular Disease | DX: I83.90 Asymptomatic varicose veins of unspecified lower extremity (principal); I73.9 Peripheral vascular disease, unspecified; I10 Essential (primary) hypertension; C76.52 Malignant neoplasm of left lower limb; R42 Dizziness and giddiness | CPT/HCPCS: 99204 ==

== ENCOUNTER 2025-01-12 10:04 | Outpatient (CLI) | payer MEDICARE, MEDICAID, SELFPAY ==
[2025-01-12 11:15] LABS: Anion Gap 13.1 (5-19); Blood Urea Nitrogen 22 mg/dL (8-23); Calcium 8.9 mg/dL (8.5-10.5); Carbon Dioxide 23 mmol/L (22-29); Chloride 104 mmol/L (98-107); Glucose 88 mg/dL (65-115); Osmolality Calculated 285 mOsm/kg (285-295); Potassium 4.1 mmol/L (3.5-5.1); Sodium 136 mmol/L (136-145)
== END 2025-01-12 10:05 | disposition home or self-care (01) ==
PROVIDERS: PCP Family Medicine; Visit Provider Nurse Practitioner Family
DX: N18.31 Chronic kidney disease, stage 3a (principal)
CPT/HCPCS: 36415; 80048

== ENCOUNTER 2025-01-15 06:48 | Day surgery (SDC) | payer MEDICARE, MEDICAID, SELFPAY ==
[2025-01-15] VITALS (7 sets, daily range): BP systolic 110–148; BP diastolic 61–81; PULSE 64–76; RESP 16–20; TEMP 36.1–36.5; O2SAT 94–100
--- NOTE | 2025-01-15 | XR_ITS ---
WS: [id number] Exam: XR toe LT min 2V [id number] Date/Time of Exam: 01/15/2025 12:00 AM Reason For Exam: HAMMERTOE CORRECTION AP and lateral intraoperative images of the LEFT toes are submitted. Joint replacements of the PIP joints of the second and third toes are noted.
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
--- NOTE | 2025-01-15 07:05 | W.PM.OPSUD ---
Surgery/Procedure H&P Update DATE OF PROCEDURE: January 15, 2025 DATE H&P PERFORMED: 01/15/25 H&P UPDATE INFORMATION: I have reviewed H&P completed within last 30 days, I have examined patient prior to procedure, No changes to prior documentation and H&P is in [facility] [place] date indicated PREOP DIAGNOSIS: Left hammertoe PLANNED PROCEDURE: Operation Date: 01/15/25 08:30 Proposed Procedures p left second hammertoe correction, Left third hammertoe correction(Left) - Hua Parker DPM s Left foot second flexor digitorum longus tendon transfer and Left foot third flexor digitorum longus tendon transfer(Left) - Hua Parker DPM
[2025-01-15] MEDS: sodium chloride 0.9% 1,000 ML 30 ML IV (07:17)
--- NOTE | 2025-01-15 08:11 | ANES.PREANE2 ---
Pre-Anesthetic Assessment Height/Weight: Height 5 ft 7 in Weight 192 lb Temp Pulse Resp BP Pulse Ox O2 Del Method 97.0 F L 64 16 130/73 100 Room Air 01/15/25 07:05 01/15/25 07:05 01/15/25 07:05 01/15/25 07:05 01/15/25 07:05 01/15/25 07:05 Preop Diagnosis: Left hammertoe Operation Date: 01/15/25 08:30 Proposed Procedures p left second hammertoe correction, Left third hammertoe correction(Left) - Hua Parker DPM s Left foot second flexor digitorum longus tendon transfer and Left foot third flexor digitorum longus tendon transfer(Left) - Hua Parker DPM Was Beta Donald taken within 24 hours: N/A Was Clonidine taken within 24 hours: N/A Last intake: Intake Last Liquid Date 01/14/25 Last Liquid Time 20:00 Last Solid Date 01/14/25 Last Solid Time 20:00 Social No alcohol and No tobacco Exam alert, oriented x 3, clear to auscultation bilaterally and regular rate & rhythm Airway Submandibular: within normal limits Cervical ROM: within normal limits Mallampati: Class II Dentition: full Comments: Comments: few missing teeth, denies any loose Anesthetic Plan ASA status: 3 Anesthesia: MAC Other: No prior issues with anesthesia NPO since yesterday History of hypothyroidism on Synthroid On chronic Ozempic, last taken 01/08/2025 Prior Angel procedure for GERD Labs reviewed and acceptable for procedure EKG sinus rhythm Plan for MAC anesthesia with local via surgeon Medications/Allergies Home Medications ?Medication ?Instructions ?Recorded ?Confirmed ?Last Taken ?Type montelukast 10 mg tablet 10 mg PO DAILY 05/14/22 01/12/25 01/07/25 History Walker #1 ea 10/24/22 12/29/24 Unknown Rx ASO brace to the right #1 ea 11/28/22 12/29/24 Unknown Rx Supinator to right #1 ea 01/09/23 12/29/24 Unknown Rx low profile spectrum articulating #1 ea 05/30/23 12/29/24 Unknown Rx afo atorvastatin 10 mg tablet 10 mg PO DAILY 12/29/24 01/07/25 01/07/25 History denosumab 60 mg/mL subcutaneous 60 mg SUBCUT Q6M 12/29/24 01/12/25 10/09/24 History syringe (Prolia) dexlansoprazole 60 mg 60 mg PO DAILY 12/29/24 01/12/25 01/07/25 History capsule,biphase delayed release levothyroxine 25 mcg tablet 25 mcg PO DAILY 12/29/24 01/12/25 01/14/25 05:30 History lorazepam 1 mg tablet (Ativan) 1 mg PO Q8H PRN anxiety #10 tabs 12/29/24 01/12/25 Unknown Rx rimegepant 75 mg disintegrating See Rx Instructions .Route .COMPLEX 12/29/24 01/12/25 Unknown History tablet (Nurtec ODT) semaglutide 2 mg/dose (8 mg/3 mL) 2 mg SUBCUT Q7D 12/29/24 01/12/25 01/08/25 History subcutaneous pen injector (Ozempic) Allergies Allergy/AdvReac Type Severity Reaction Status Date / Time hydroxyzine Allergy Mild RASH Verified 01/15/25 07:02 barium sulfate Allergy unknown Verified 01/15/25 07:02 codeine Allergy unknown Verified 01/15/25 07:02 oxycodone Allergy unknown Verified 01/15/25 07:02 Current Medications Generic Name Dose Route Start Last Admin Trade Name Freq PRN Reason Stop Dose Admin Sodium Chloride 1,000 mls @ 30 mls/hr 01/15/25 07:00 01/15/25 07:17 Sodium Chloride 0.9% IV 01/16/25 06:59 30 mls/hr .Q24H GABRIELLA Administration PFSH Anesthesia Medical History Chronic left shoulder pain Lateral malleolar fracture Osteoarthritis of knees, bilateral Surgical History History of arthroscopy of both knees Family History Grandmother Diabetes Congestive heart failure (CHF) Father Cancer Heart disease Congestive heart failure (CHF) Sister Cancer Mother Heart disease Dementia Grandfather Congestive heart failure (CHF) Social History Smoking and tobacco/nicotine status: never used tobacco/nicotine Alcohol intake: never Substance/Drug Use: never Female Reproductive History Spontaneous abortions: No Data Anesthesia Cardiac Studies: Sestamibi Stress Test (Cardiology) 10/18/22
[2025-01-15] MEDS: ceFAZolin 2,000 mg SDV 2000 MG IVP (08:43)
[2025-01-15] MEDS: BUPivacaine liposome 13.3 mg/mL SDV 20 mL 266 MG INFILTRATI (08:50)
[2025-01-15] MEDS: BUPivacaine 0.5% INJ 30 mL 20 ML INJECTION (08:50)
--- NOTE | 2025-01-15 09:23 | P.BOP_ITS ---
Date of Procedure: 01/10/24 Surgeon: Hua Parker DPM Vending Machine Operator(s): Zainab Galicia Nikki student Procedure(s) performed: Left second and third hammertoe correction, left second and third tendon transfer all left foot. Findings of the procedure(s): None. Estimated blood loss: 1 mL Specimen(s) removed: No specimens removed Post-operative diagnosis: Left foot tendon contracture left foot second and third hammertoe deformities. Local MAC, gurney, supine, 21-minute tourniquet time. Left ankle tourniquet. No complications.
--- NOTE | 2025-01-15 09:24 | PM.OP ---
Operative Report Date of procedure: January 15, 2025 Pre-op diagnosis: Left foot pain M79.672 Contracture, left foot M24.575 Hammertoe of left foot M20.42 Post-op diagnosis: Left foot pain M79.672 Contracture, left foot M24.575 Hammertoe of left foot M20.42 Procedure done: 1)Left second hammertoe correction. CPT code 56545 2) left third hammertoe correction CPT code 82515 3) left foot second flexor digitorum longus tendon transfer. CPT code 26706 4) left foot third flexor digitorum longus tendon transfer. CPT code 95590 Implants: [place] hammer tube 10 degree 3.5 mm and second toe, [place] hammer tube 2.75 mm with 10 degree angle left third toe. 4-0 Vicryl, 4 nylon. Surgeon: Hua Parker DPM Meter Record Clerk: Zainab Galicia Nikki student Estimated blood loss: 1 mL 21 minutes IV fluids: See intraoperative documentation Urine output: 0 Complications: No complications Brief History: 74-year-old female with a history of left foot tendon contracture presenting with left foot hammer toe deformities and pain. The patient has significant impairment in daily activities due to these deformities, which have not responded to conservative management over the past year. The hammer toe deformities are reducible but have sagittal plane dominance. Surgical correction is considered due to the impact on her quality of life. 1. Other hammer toe(s) (acquired), left foot The patient is to undergo outpatient hammer toe correction surgery to address the deformities impacting her second and third toes that are causing significant pain and decrease in function. The goal is to relieve the pain and improve functional ability with foot proper alignment. Surgical risks, benefits, and alternatives have been discussed, and consent has been obtained. 2. Left Foot Tendon Contracture Contracture associated with the hammer toe deformities will be addressed during the hammer toe correction surgery. The surgical intervention is expected to restore mobility and reduce the associated foot pain. I reviewed at length with the patient, the risks, potential complications, benefits, alternatives, expectations, and typical outcomes associated with the surgery. The risks and potential complications were explained in detail, including but not limited to infection, wound dehiscence or soft tissue complications, bleeding and hematoma, chronic edema, neuritis or nerve damage producing numbness or chronic pain, CRPS, failure to relieve pain or worsening pain, thick / painful / unsightly scar, limited motion / stiffness, malposition, delayed union, malunion, or nonunion, fracture, reaction to implants, anesthetic complications, venous thromboembolism, and deformity recurrence. I discussed the notion of no regrets with the patient as it pertains to complications and outcomes. The patient seemed to understand the nature of the proposed care and required convalescence. They asked appropriate questions, answered to their satisfaction. They are aware no guarantees can be made as to a satisfactory outcome and they understand there may be other possible unforeseen complications or outcomes not listed here that will be treated accordingly if they arise. There were no written or implied guarantees given to the patient. They gave informed consent to proceed. The decision to proceed with surgical intervention was made due to the persistence of symptoms despite conservative management and the significant impact on the patient's daily life. Alternative treatments were considered, but the lack of response over a considerable time led to the recommendation for surgical correction. The procedure is expected to alleviate pain and functional impairment by correcting the toe deformities and associated contracture. The potential risks and benefits were thoroughly discussed, and the patient consented to proceed, affirming the decision based on the clinical presentation and patient's goals for improved quality of life. Procedure: Under mild sedation the patient was brought to the operating room and remained on the gurney in supine position. A timeout was performed. Anesthesia was then administered by the anesthesia service. Local anesthesia injected by myself consisting of 20 cc of 0.5% Marcaine in a left 2nd and 3rd ray block fashion with an additional 20 cc of Exparel subcutaneously in a grid like fashion at the dorsal left foot per manufacture recommendation and technique. Well-padded pneumatic tourniquet was applied to the left ankle. The left lower extremity was scrubbed, prepped and draped utilizing normal aseptic technique. Left foot was then exanguinated with an Esmarch bandage and tourniquet inflated to 250 mmHg. Attention was directed to the left forefoot where deep tendon contracture was appreciated with sagittal plane dominant deformity of the left second and third toe as well as arthrosis of the left second and third proximal interphalangeal joint. A linear longitudinal incision made over the dorsal aspect of the left second and third toe through skin with a #15 blade with dissection carried down to extensor tendon which was transected at the level of the proximal interphalangeal joint and dissected proximally and temporary by a mosquito hemostat. The head and base of the left second and third proximal interphalangeal joint were resected with a oscillating saw pad about the field. Sharp dissection carried down to the flexor digitorum longus tendon which was transected at its most distal margin and split longitudinally and then transferred both medially laterally and hemisections fashion and transferred to the dorsal aspect of the left second and third toe which was then held in rectus and tendon was reapproximated utilizing 4-0 nylon helping to reduce the sagittal plane deformity at the left second and third toe and to help prevent cock-up toe deformity. The incisions were irrigated with saline solution. Attention was directed at arthrodesis site of the proximal interphalangeal joint left second and third toe where subchondral drilling was performed at the proximal phalanx head and intermediate phalanx base. Next utilizing manufacture technique a [place] 3.5 mm with 10 degree angle at the left second toe and [place] 2.75 mm x 10 degree angle at left third toe was placed intramedullary within the distal, intermediate and proximal phalanx of the left second and third toe holding this rectus and allowing excellent compression at the proximal interphalangeal joint arthrodesis site excellent placement of hardware and rectus left second and third toe was appreciated both intraoperatively under direct visualization as well as with AP, oblique and lateral views noted to be excellent in all 3 planes with the second metatarsal plantar joint not being violated. Smooth range of motion appreciated at the left second and third metatarsal phalangeal joint. The incisions were then flushed with copious amounts of sterile saline solution and the extensor tendon was reapproximated utilizing 4-0 Vicryl. Subcutaneous tissue closed with 4-0 Vicryl and skin with 4-0 nylon. The incisions were then dressed with Adaptic, sterile 4 x 4's, Kerlix and Colby wrap followed by application of a cam boot. Tourniquet was deflated and a prompt hyperemic response was noted to the distal digits of the right foot. Patient tolerated the procedure and anesthesia well and was transferred to the PACU with vital signs stable and vascular status intact. Following a period of postoperative monitoring he will be discharged home was given at home care instructions and scheduled follow-up he is also given my cell phone number to contact me directly with any postoperative questions or concerns.
--- NOTE | 2025-01-15 10:13 | ANE.PACU2 ---
Inpatient post-anesthesia follow up: Airway intact: Yes Vital signs: Temperature 97.7 F Pulse Rate 68 Respiratory Rate 16 Blood Pressure 141/80 Pulse Oximetry 98 Oxygen Delivery Me thod Room Air Oxygen Flow Rate Fraction of Inspir ed Oxygen Hydration adequate: Yes Nausea and vomiting: No Pain level: 1 Mental status: Baseline
== END 2025-01-15 10:13 | disposition home or self-care (01) ==
PROVIDERS: PCP Family Medicine; Visit Provider Podiatrist Foot & Ankle Surgery
PROC: (CPT 28285; principal; 2025-01-15 08:20)
PROC: (CPT 27691; 2025-01-15 08:20)
DX: M24.575 Contracture, left foot (principal); M20.42 Other hammer toe(s) (acquired), left foot; E03.9 Hypothyroidism, unspecified; Z79.890 Hormone replacement therapy; Z79.85 Long-term (current) use of injectable non-insulin antidiabetic drugs; Z79.899 Other long term (current) drug therapy; Z88.5 Allergy status to narcotic agent; Z88.2 Allergy status to sulfonamides
CPT/HCPCS: 27691; 28285 ×2; 27692; 73660; 76000; C1713 ×2; J0666; J0690; J2704; J3010; J3490; J7030; J9999

== ENCOUNTER → 2025-01-28 14:44 | Outpatient (BNVA) | payer MEDICARE, MEDICAID, SELFPAY | PROVIDERS: PCP Family Medicine; Visit Provider Podiatrist Foot & Ankle Surgery | DX: M79.672 Pain in left foot (principal); Z01.818 Encounter for other preprocedural examination; M24.575 Contracture, left foot; M20.42 Other hammer toe(s) (acquired), left foot | CPT/HCPCS: 73630; 99024 ==

== ENCOUNTER 2025-02-02 09:24 | Outpatient (CLI) | payer MEDICARE, MEDICAID, SELFPAY ==
--- NOTE | 2025-02-02 09:30 | USR_ITS ---
PROCEDURE INFORMATION: Exam: US Duplex Lower Extremity Veins, Bilateral Exam date and time: 02/02/2025 10:06 AM Age: 74 years old Clinical indication: Varicose veins of lower extremities TECHNIQUE: Imaging protocol: Real-time duplex ultrasound of the bilateral extremities with 2-D comse scale, color Doppler flow and spectral waveform analysis including responses to compression and other maneuvers (when performed) with image documentation. Complete exam focused on the lower extremity veins. COMPARISON: CR XR knee RT 1-2V [id number] 10/21/2022 5:49 PM FINDINGS: Right deep veins: Unremarkable. The common femoral, femoral, proximal profunda femoral and popliteal veins as well as the visualized deep veins of the lower leg are patent without thrombus. Normal Doppler waveforms. Normal compressibility and/or augmentation response. Left deep veins: Unremarkable. The common femoral, femoral, proximal profunda femoral and popliteal veins as well as the visualized deep veins of the lower leg are patent without thrombus. Normal Doppler waveforms. Normal compressibility and/or augmentation response. Superficial veins: Greater saphenous veins at the saphenofemoral junctions are patent bilaterally without thrombus. Areas of superficial varicosities are visualized. Soft tissues: Unremarkable. US/CV elis dup insuelias [facility] [id number] IMPRESSION: No evidence of deep vein thrombosis. Superficial varicosities.
== END 2025-02-02 09:25 | disposition home or self-care (01) ==
PROVIDERS: PCP Family Medicine; Visit Provider Internal Medicine Cardiovascular Disease
DX: I83.90 Asymptomatic varicose veins of unspecified lower extremity (principal)
CPT/HCPCS: 93970

== ENCOUNTER 2025-02-04 08:58 | Outpatient (CLI) | payer MEDICARE, MEDICAID, SELFPAY ==
--- NOTE | 2025-02-04 09:30 | USR_ITS ---
PROCEDURE INFORMATION: Exam: US Bilateral Noninvasive Physiologic Study of the Lower Extremity Arteries, Limited Exam date and time: 02/04/2025 9:17 AM Age: 74 years old Clinical indication: Condition or disease; Peripheral vascular disease; Additional info: Pad, claudication TECHNIQUE: Imaging protocol: Bilateral Limited bilateral noninvasive physiologic studies of lower extremity arteries. Waveforms were obtained and evaluated. Images were documented and archived. Exam is limited. COMPARISON: [place] [id number] 02/02/2025 10:06 AM FINDINGS: Right Ankle-Brachial Index: 0.97 (135/138) Left Ankle-Brachial Index: 1.0 (133 /127) US/CV ankle brachial index [id number] IMPRESSION: No evidence of stenosis or occlusion in the lower extremity.
== END 2025-02-04 08:59 | disposition home or self-care (01) ==
PROVIDERS: PCP Family Medicine; Visit Provider Internal Medicine Cardiovascular Disease
DX: I73.9 Peripheral vascular disease, unspecified (principal); M79.604 Pain in right leg; M79.605 Pain in left leg
CPT/HCPCS: 93922

== ENCOUNTER 2025-02-18 08:49 | Outpatient (CLI) | payer MEDICARE, MEDICAID, SELFPAY ==
--- NOTE | 2025-02-18 | ECG_ITS ---
[employer] Test Date: 2025-02-18 Pat Name: Jennifer Gary Department: Room: Gender: Female Clinic Manager: : 1950 Requested By: Christina Ivey Order Number: [id number] Barbara MD: Ben Abraham M.D. Interpretive Statements Intraprocedure shortess of breath; Symptoms resoled by discharge; Lung unchanged pre/post procedure PROCEDURE: At the baseline, the EKG revealed normal sinus rhythm with a normal ST Ts. The baseline heart was 62 bpm with a blood pressue of 124/77 mm of Hg Lexiscan was infused over a period of 20 seconds. A total of 0.4 milligrams of Lexiscan was infused. The stress phase was continued for a total of 5 minutes. Heart rate at the end of the stress phase was 79 bpm with a blood pressure 137/66 mm of Hg. The EKG at the peak infusion revealed no significant changes. Sestamibi was injected 20 seconds after the Lexiscan infusion. Heart rate at the end of the recovery phase was 78 bpm with a blood pressure of 136/63 mm of Hg. CONCLUSION: 1. No significant EKG changes with the LexiScan infusion 2. No LexiScan induced chest pain or cardiac arrhythmia 3. Normal blood pressure and heart rate response 4. Sestamibi/sestamibi perfusion scan pending; see separate report. Electronically Signed On 02-18-2025 17:21:33 CDT by Ben Abraham M.D. [email or web address]
[2025-02-18 09:15] VITALS: BMI 28.5
--- NOTE | 2025-02-18 09:16 | NMCV_ITS ---
NM jabari perf SPECT r/s* [id number] Jennifer Gary Age: 74 Gender: F : 1950 Exam Date: 02/18/2025 10:50 Ordering Phys: Christina Rosario DO Technologist: CONNIE Gonzalez Exam Location: [facility] Indications: cp STRESS TEST Please see separate stress test report in [facility] for full findings IMAGE PROTOCOL Rest/Stress 1 Lexiscan Day Radiopharmaceutical Dose (mCi) Administration Site Administered by Rest: Tc-99m 11 IV CONNIE Gonzalez Sestamibi Stress:Tc-99m 33 IV CONNIE Worrell Sestamibi Rest: 18-Feb-2025 60 Discovery 630 Stress: 18-Feb-2025 30 Discovery 630 0.4mg Lexiscan. Supine position only as patient was unable to lay prone. SPECT RESULTS Technical Quality: Good Raw Data Analysis: Normal Image Corrections: No attenuation or motion correction applied Summed Stress Score: 2 Summed Rest Score: 6 Summed Difference Score: 1 PERFUSION FINDINGS A small area of moderately decreased tracer uptake involving the apical inferior segment with a subtle reversibility FUNCTIONAL RESULTS (calculated via Gated SPECT) Stress Image LV EF (%): 74 Stress EDV (mL):87 TID: 0.88 Stress ESV (mL):23 FUNCTIONAL FINDINGS: Segmental wall motion analysis revealing no gross wall motion abnormalities IMPRESSIONS 1. Myocardial perfusion imaging revealing a small area of mildly decreased tracer uptake involving the apical inferior region, with subtle reversibility suggesting myocardial scarring with a subtle area of joan-infarction ischemia in the distribution of the distal RCA. 2. Normal LV ejection fraction 74%. 3. LV wall motion analysis revealing no gross wall motion abnormalities. 4. Normal LV volume Compared to study from 10/18/2022, there may not be a significant change Dr Ben Abraham MD FAC (Electronically Signed) Final Date: 18 February 2025 14:05 S
[2025-02-18] MEDS: regadenoson 0.4 Mg/5 ml Syringe IVP (10:17)
[2025-02-18 10:28] VITALS: BP 136/63; PULSE 78
[2025-02-18] MEDS: aminophylline 25 mg/mL SDV 20 mL IVP (10:38)
== END 2025-02-18 08:50 | disposition home or self-care (01) ==
PROVIDERS: PCP Family Medicine; Visit Provider Family Medicine
DX: R07.9 Chest pain, unspecified (principal); R93.1 Abnormal findings on diagnostic imaging of heart and coronary circulation
CPT/HCPCS: 36415; 78452; 93017; 96374; 96375; A9500; J0280; J2785

== ENCOUNTER 2025-02-19 13:45 | Outpatient (CLI) | payer MEDICARE, MEDICAID, SELFPAY ==
--- NOTE | 2025-02-19 14:00 | USR_ITS ---
PROCEDURE INFORMATION: Exam: US Duplex Bilateral Lower Extremity Arteries Exam date and time: 02/19/2025 2:05 PM Age: 74 years old Clinical indication: Condition or disease; Varicose veins of lower extremities; Lower extremity, right and lower extremity, left; Additional info: I87.2 - venous insufficiency (chronic) (peripheral) TECHNIQUE: Imaging protocol: Real-time ultrasound scan of the arteries of the bilateral lower extremities with 2-D cosme scale, color Doppler flow and spectral waveform analysis. Images documented and saved. COMPARISON: US Lower Arterial 02/04/2025 9:17 AM FINDINGS: Right common femoral artery: No occlusion or significant stenosis. Normal waveform. Right superficial femoral artery: No occlusion or significant stenosis. Normal waveform. Right popliteal artery: No occlusion or significant stenosis. Normal waveform. Right calf/foot arteries: No occlusion or significant stenosis in the visualized arteries. Normal waveforms. Dorsalis pedis artery is patent. Left common femoral artery: No occlusion or significant stenosis. Normal waveform. Left superficial femoral artery: No occlusion or significant stenosis. Normal waveform. Left popliteal artery: No occlusion or significant stenosis. Normal waveform. Left calf/foot arteries: No occlusion or significant stenosis in the visualized arteries. Normal waveforms. Dorsalis pedis artery is patent. US/[place] [id number] IMPRESSION: No stenosis or occlusion.
== END 2025-02-19 13:46 | disposition home or self-care (01) ==
PROVIDERS: PCP Family Medicine; Visit Provider Internal Medicine Cardiovascular Disease
DX: I87.2 Venous insufficiency (chronic) (peripheral) (principal)
CPT/HCPCS: 93925

== ENCOUNTER → 2025-02-25 14:16 | Outpatient (BNVA) | payer MEDICARE, MEDICAID, SELFPAY | PROVIDERS: PCP Family Medicine; Visit Provider Podiatrist Foot & Ankle Surgery | DX: Z98.890 Other specified postprocedural states (principal); M79.672 Pain in left foot; M24.575 Contracture, left foot; M20.42 Other hammer toe(s) (acquired), left foot | CPT/HCPCS: 73630; 99024 ==

== ENCOUNTER 2025-03-24 13:42 | Outpatient (CLI) | payer MEDICARE, MEDICAID, SELFPAY ==
[2025-03-24 14:18] LABS: Basophils # 0.1 10^3/uL (0.0-0.1); Basophils % 1.5 %; Eosinophils # 0.2 10^3/uL (0.0-0.8); Hematocrit 41.5 % (36-47); Lymphocytes % 18.3 %; Mean Corpuscular HGB Conc 32.5 g/dL (30-55); Mean Corpuscular Hemoglobin 28.5 pg (27-33); Mean Corpuscular Volume 87.6 fl (85-98); Mean Platelet Volume 12.1 fL (7.4-10.4); Monocytes # 0.5 10^3/uL (0.2-0.9); Monocytes % 9.2 %; Neutrophils # 3.67 10^3/uL (1.8-7.7); Neutrophils % 67.8 %; Nucleated Red Blood Cells % 0 %; Platelet Count 241 10^3/cmm (157-399); Red Blood Count 4.74 10^6/uL (3.85-5.65); Red Cell Distribution Width 14.3 % (12.1-15.1); White Blood Count 5.41 10^3/uL (3.29-11.43)
[2025-03-24 14:47] LABS: Calcium 8.6 mg/dL (8.5-10.5)
[2025-03-24 14:48] LABS: Anion Gap 18.4 (5-19); Blood Urea Nitrogen 17 mg/dL (8-23); Calcium 8.6 mg/dL (8.5-10.5); Carbon Dioxide 19 mmol/L (22-29); Chloride 107 mmol/L (98-107); Glucose 86 mg/dL (65-115); Phosphorus 2.5 mg/dL (2.5-4.5); Potassium 4.4 mmol/L (3.5-5.1); Sodium 140 mmol/L (136-145)
[2025-03-24 14:54] LABS: Parathyroid Hormone 233.9 pg/mL (15-65)
[2025-03-24 15:00] LABS: Creatinine Urine, Random 208 mg/dL (28-217); Microalbum Creatinine Ratio Ur 14 mg/dL (0-20); Microalbumin Random Urine 3 ug/dL (0-20)
[2025-03-24 15:04] LABS: 25 Hydroxy Vitamin D 23 ng/mL (30-100)
== END 2025-03-24 13:43 | disposition home or self-care (01) ==
PROVIDERS: PCP Family Medicine; Visit Provider Internal Medicine
DX: N18.31 Chronic kidney disease, stage 3a (principal)
CPT/HCPCS: 36415; 80069; 82044; 82306; 82310; 83970; 85025

== ENCOUNTER 2025-04-29 15:02 | Outpatient (CLI) | payer MEDICARE, MEDICAID, SELFPAY ==
[2025-04-29 15:53] LABS: Hematocrit 41.6 % (36-47); Hemoglobin 13.20 g/dL (11.27-16.99); Mean Corpuscular HGB Conc 31.7 g/dL (30-55); Mean Corpuscular Hemoglobin 28.9 pg (27-33); Mean Corpuscular Volume 91.2 fl (85-98); Nucleated Red Blood Cells % 0 %; Platelet Count 251 10^3/cmm (157-399); Red Blood Count 4.56 10^6/uL (3.85-5.65); White Blood Count 5.53 10^3/uL (3.29-11.43)
[2025-04-29 16:14] LABS: Alanine Aminotransferase 13 U/L (0-33); Albumin Level 3.9 g/dL (3.5-5.2); Alkaline Phosphatase 47 U/L (35-105); Anion Gap 16.1 (5-19); Aspartate Amino Transferase 16 U/L (0-32); Blood Urea Nitrogen 23 mg/dL (8-23); Calcium 8.8 mg/dL (8.5-10.5); Carbon Dioxide 22 mmol/L (22-29); Chloride 106 mmol/L (98-107); Free T4 Free Thyroxine 1.43 ng/dL (0.82-1.77); Globulin 2.6 g/dL (1.3-4.6); Glucose 93 mg/dL (65-115); Osmolality Calculated 293 mOsm/kg (285-295); Potassium 4.1 mmol/L (3.5-5.1); Sodium 140 mmol/L (136-145); Thyroid Stimulating Hormone 0.46 uIU/mL (0.27-4.20); Total Protein 6.5 g/dL (6.6-8.7)
== END 2025-04-29 15:03 | disposition home or self-care (01) ==
LOC: LAB 15:06
PROVIDERS: PCP Family Medicine; Visit Provider Nurse Practitioner Family
DX: L65.9 Nonscarring hair loss, unspecified (principal); L29.89 Other pruritus
CPT/HCPCS: 36415; 80048; 80076; 84439; 84443; 85025

== ENCOUNTER → 2025-06-09 10:08 | Outpatient (BNVA) | payer MEDICARE, MEDICAID, SELFPAY | PROVIDERS: PCP Family Medicine | DX: R39.9 Unspecified symptoms and signs involving the genitourinary system (principal) | CPT/HCPCS: 81000; 87077; 87086; 87184 ==

== ENCOUNTER → 2025-06-30 14:13 | Outpatient (BNVA) | payer MEDICARE, MEDICAID, SELFPAY | PROVIDERS: PCP Family Medicine; Visit Provider Nurse Practitioner Family | DX: L29.89 Other pruritus (principal) | CPT/HCPCS: 99214 ==

== ENCOUNTER → 2025-07-13 15:21 | Outpatient (BNVA) | payer MEDICARE, MEDICAID, SELFPAY | PROVIDERS: PCP Family Medicine; Visit Provider Internal Medicine Cardiovascular Disease | DX: I73.9 Peripheral vascular disease, unspecified (principal); M24.575 Contracture, left foot; I83.893 Varicose veins of bilateral lower extremities with other complications | CPT/HCPCS: 99214 ==

== ENCOUNTER → 2025-10-13 13:56 | Outpatient (BNVA) | payer MEDICARE, MEDICAID, SELFPAY | PROVIDERS: PCP Family Medicine; Visit Provider Podiatrist Foot & Ankle Surgery | DX: M20.42 Other hammer toe(s) (acquired), left foot (principal); M79.673 Pain in unspecified foot; M79.672 Pain in left foot | CPT/HCPCS: 73630; 99213 ==